=== PATIENT | male | born 1995 | race Caucasian/White ===

== ENCOUNTER 2018-01-07 17:37 | Emergency (ER) | payer OTHER, MEDICAID, SELFPAY ==
[2018-01-07 17:53] VITALS: BP 151/78; PULSE 74; RESP 18; TEMP 37.3; O2SAT 99
--- NOTE | 2018-01-07 18:03 | ED.SOB ---
HPI - SOB/Dyspnea <EDWINA Marquis - Last Filed: 01/07/18 20:35> General Chief Complaint: Shortness of Breath/Dyspnea Stated Complaint: SOB, states cant move/ feel left hand Time Seen by Provider: 01/07/18 18:03 Source: patient Mode of arrival: ambulatory Limitations: no limitations History of Present Illness MD Complaint: shortness of breath and anxiety Onset (ago): day(s) (1) Context: recent illness (nasal congestion and snotty nose) and anxiety (but says he doesn't think this anxiety this time) Severity: mild Consistency/Duration: constant Relieving factors: nothing Exacerbating factors: nothing Associated symptoms: paresthesias (hands feel numb) Treatment prior to arrival: none Related Data Previous Rx's Medication Instructions Recorded albuterol sulfate 1 puff INHALATION Q6H PRN #1 gram 01/07/18 Allergies Allergy/AdvReac Type Severity Reaction Status Date / Time No Known Allergies Allergy Uncoded 01/07/18 17:56 Review of Systems <EDWINA Marquis - Last Filed: 01/07/18 20:35> Review of Systems All systems reviewed & are unremarkable except as noted in HPI and below Constitutional Reports as per HPI, Reports system reviewed and no additional complaints, except as docu, Denies headache(s) and Denies weakness ENT Ears, Nose, Mouth, and Throat: Denies vertigo, Denies dizziness, Denies ear discharge, Denies otalgia, Denies facial pain, Denies headache(s), Reports nasal congestion, Denies nasal discharge, Denies post nasal drip, Denies sinus pain, Denies sinus pressure and Denies sore throat Cardiovascular Denies chest pain, Denies syncope, Reports dyspnea (feels like he can not take a deep breath) and Denies dyspnea on exertion Respiratory Denies chest congestion, Denies cough, Denies excessive phlegm production, Denies pain on inspiration, Denies pain with cough, Reports dyspnea (feels like he can not take a deep breath), Denies dyspnea on exertion and Denies wheezing Gastrointestinal Gastrointestinal: Denies abdominal pain Musculoskeletal Reports system reviewed and no additional complaints, except as docu and Denies back pain Neurologic Denies vertigo, Denies dizziness, Denies syncope, Denies headache(s), Denies sensory deficit, Reports paresthesias (hands feel numb) and Denies weakness Allergic/Immunologic Denies wheezing Exam <Meenakshi Bartlett [facility] - Last Filed: 01/07/18 20:35> Initial Vital Signs Initial Vital Signs: Vital Signs Temperature 99.1 F 01/07/18 17:53 Pulse Rate 74 01/07/18 17:53 Respiratory Rate 18 01/07/18 17:53 Blood Pressure 151/78 H 01/07/18 17:53 Pulse Oximetry 99 01/07/18 17:53 Const General: cooperative, healthy appearing, comfortable, well developed and well groomed Nutritional Appearance: average body habitus Orientation: alert, awake and oriented x3 HENMT Head: normal to inspection and normocephalic Ears: hearing grossly normal bilaterally, external ears normal, TM's normal bilaterally and mastoids normal Nose: external nose normal and nares normal Face and sinus: normal facial exam, sinuses nontender and face symmetric Mouth: oral mucosae normal, lip normal, tongue normal, oropharynx normal and moist mucous membranes Teeth and gingiva: dentition normal and gingiva normal Throat: posterior oropharynx normal, tonsils normal and uvula midline Eyes General: appearance normal, both eyes and all related structures Visual Pride: normal visual pride by confrontation Eyelids: eyelids normal Conjunctivae: conjunctivae normal Sclera: sclerae normal Pupils: PERRL EOM: EOM intact bilaterally Neck Neck: normal visual inspection, full ROM, no meningeal signs, trachea midline, supple and No lymphadenopathy Chest Chest: normal inspection of the chest Resp Effort & Inspection: normal respiratory effort and able to speak in complete sentences Auscultation: clear to auscultation bilaterally Cardio Rate: regular rate Rhythm: regular rhythm Heart Sounds: S1 normal and S2 normal Back/Spine/Pelvis Cervical Spine: cervical ROM normal Thoracic/Lumbar Spine: thoraco-lumbar ROM normal Skin General: no rashes or lesions noted, elasticity normal, turgor normal and dry skin Neuro General: alert, awake, oriented x3 and meningeal signs present Cognition: normal cognition Speech: speech normal Gait: normal gait Motor: muscle tone normal throughout Sensory Exam: no sensory deficits noted Extrem General: normal to inspection and full ROM Psych Appearance: grossly normal and well kempt Mental Status: mental status grossly normal Speech and Movement: speech and movement normal Mood: congruent mood Affect: normal affect Attitude: cooperative Thought Process: normal Thought Content: normal Judgment: judgment good <Tiffany C Mank, DO - Last Filed: 01/07/18 21:27> Initial Vital Signs Initial Vital Signs: Vital Signs Temperature 99.1 F 01/07/18 17:53 Pulse Rate 74 01/07/18 17:53 Respiratory Rate 18 01/07/18 17:53 Blood Pressure 151/78 H 01/07/18 17:53 Pulse Oximetry 99 01/07/18 17:53 Course <EDWINA Marquis - Last Filed: 01/07/18 20:35> Orders Ordered: ED Orders 01/07/18 17:49 EKG-12 Lead Stat 01/07/18 18:06 XR chest 2V Stat Vital Signs - 8 hr 01/07/18 17:53 01/07/18 18:15 01/07/18 19:30 Temperature 99.1 F Pulse Rate 74 77 74 Respiratory Rate 18 15 13 Blood Pressure 151/78 H Blood Pressure [Left Arm] 136/96 H 104/73 Pulse Oximetry 99 100 97 <Tiffany Gale DO - Last Filed: 01/07/18 21:27> Orders Ordered: ED Orders 01/07/18 17:49 EKG-12 Lead Stat 01/07/18 18:06 XR chest 2V Stat Vital Signs - 8 hr 01/07/18 17:53 01/07/18 18:15 01/07/18 19:30 Temperature 99.1 F Pulse Rate 74 77 74 Respiratory Rate 18 15 13 Blood Pressure 151/78 H Blood Pressure [Left Arm] 136/96 H 104/73 Pulse Oximetry 99 100 97 MDM - SOB/Dyspnea <EDWINA Marquis - Last Filed: 01/07/18 20:35> Differential Diagnosis Likely community acquired pneumonia, asthma with exacerbation and other (anxiety, allergies, bronchitis, flu, uri) Imaging Data Chest x-ray: Radiologist's impression: [address] [address] XRay Report Signed Patient: Brandno Jones WMR#: [id number] : 1995Acct:[id number] Age/Sex: 22 / MDate of Service: 01/07/18 Loc: ED Accession Number: [id number] Procedure: XR chest 2V Ordering Provider: Dhruv,Meenakshi [employer] PROCEDURE: XR CHEST 2V INDICATIONS: cough TECHNIQUE: 2 views of the chest were acquired. COMPARISON: None. FINDINGS: Surgical changes and devices: None. Lungs and pleura: No pleural effusions or pneumothorax. Lungs are clear. Mediastinum: Mediastinal contours are normal. Heart size is normal. Bones and chest wall: No suspicious bony abnormalities. Soft tissues appear unremarkable. IMPRESSION: No acute pulmonary process. Dictated by: Sherrie Campbell M.D. on 01/07/2018 at 18:23 Approved by: Sherrie Campbell M.D. on 01/07/2018 at 18:23 Discharge Plan Departure Patient Disposition: Home Clinical Impression: Dyspnea, Normal exam Discharge Date/Time: 01/07/18 19:45 Interventions: ED Discharge Assessment Last Done: 01/07/18 19:41 Instructions: DI for Shortness of Breath Prescriptions: New albuterol sulfate 90 mcg/actuation HFA aerosol inhaler 1 puff INHALATION Q6H PRN (Reason: shortness of breath or wheezing) Qty: 1 RF: 0 Referrals: Мария Carey DO [Primary Care Provider] - (follow up in approx 3-5 days) <Tiffany Gale DO - Last Filed: 01/07/18 21:27> Cosign ED Attending Cosignature Attestation: I was immediately available in the department for consultation. This documentation has been reviewed and I agree with assessment and plan. Supervised by Tiffany Gale DO
--- NOTE | 2018-01-07 18:06 | DI.RAD.S_ITS ---
PROCEDURE: XR CHEST 2V INDICATIONS: cough TECHNIQUE: 2 views of the chest were acquired. COMPARISON: None. FINDINGS: Surgical changes and devices: None. Lungs and pleura: No pleural effusions or pneumothorax. Lungs are clear. Mediastinum: Mediastinal contours are normal. Heart size is normal. Bones and chest wall: No suspicious bony abnormalities. Soft tissues appear unremarkable. IMPRESSION: No acute pulmonary process. Dictated by: Sherrie Campbell M.D. on 01/07/2018 at 18:23 Approved by: Sherrie Campbell M.D. on 01/07/2018 at 18:23
[2018-01-07 18:15] VITALS: BP 136/96; PULSE 77; RESP 15; O2SAT 100
--- NOTE | 2018-01-07 19:14 | ED_ITS ---
HPI - SOB/Dyspnea <EDWINA Marquis - Last Filed: 01/07/18 20:35> General Chief Complaint: Shortness of Breath/Dyspnea Stated Complaint: SOB, states cant move/ feel left hand Time Seen by Provider: 01/07/18 18:03 Source: patient Mode of arrival: ambulatory Limitations: no limitations History of Present Illness MD Complaint: shortness of breath and anxiety Onset (ago): day(s) (1) Context: recent illness (nasal congestion and snotty nose) and anxiety (but says he doesn't think this anxiety this time) Severity: mild Consistency/Duration: constant Relieving factors: nothing Exacerbating factors: nothing Associated symptoms: paresthesias (hands feel numb) Treatment prior to arrival: none Related Data Previous Rx's Medication Instructions Recorded albuterol sulfate 1 puff INHALATION Q6H PRN #1 gram 01/07/18 Allergies Allergy/AdvReac Type Severity Reaction Status Date / Time No Known Allergies Allergy Uncoded 01/07/18 17:56 Review of Systems <EDWINA Marquis - Last Filed: 01/07/18 20:35> Review of Systems All systems reviewed & are unremarkable except as noted in HPI and below Constitutional Reports as per HPI, Reports system reviewed and no additional complaints, except as docu, Denies headache(s) and Denies weakness ENT Ears, Nose, Mouth, and Throat: Denies vertigo, Denies dizziness, Denies ear discharge, Denies otalgia, Denies facial pain, Denies headache(s), Reports nasal congestion, Denies nasal discharge, Denies post nasal drip, Denies sinus pain, Denies sinus pressure and Denies sore throat Cardiovascular Denies chest pain, Denies syncope, Reports dyspnea (feels like he can not take a deep breath) and Denies dyspnea on exertion Respiratory Denies chest congestion, Denies cough, Denies excessive phlegm production, Denies pain on inspiration, Denies pain with cough, Reports dyspnea (feels like he can not take a deep breath), Denies dyspnea on exertion and Denies wheezing Gastrointestinal Gastrointestinal: Denies abdominal pain Musculoskeletal Reports system reviewed and no additional complaints, except as docu and Denies back pain Neurologic Denies vertigo, Denies dizziness, Denies syncope, Denies headache(s), Denies sensory deficit, Reports paresthesias (hands feel numb) and Denies weakness Allergic/Immunologic Denies wheezing Exam <Meenakshi Bartlett [facility] - Last Filed: 01/07/18 20:35> Initial Vital Signs Initial Vital Signs: Vital Signs Temperature 99.1 F 01/07/18 17:53 Pulse Rate 74 01/07/18 17:53 Respiratory Rate 18 01/07/18 17:53 Blood Pressure 151/78 H 01/07/18 17:53 Pulse Oximetry 99 01/07/18 17:53 Const General: cooperative, healthy appearing, comfortable, well developed and well groomed Nutritional Appearance: average body habitus Orientation: alert, awake and oriented x3 HENMT Head: normal to inspection and normocephalic Ears: hearing grossly normal bilaterally, external ears normal, TM's normal bilaterally and mastoids normal Nose: external nose normal and nares normal Face and sinus: normal facial exam, sinuses nontender and face symmetric Mouth: oral mucosae normal, lip normal, tongue normal, oropharynx normal and moist mucous membranes Teeth and gingiva: dentition normal and gingiva normal Throat: posterior oropharynx normal, tonsils normal and uvula midline Eyes General: appearance normal, both eyes and all related structures Visual Pride: normal visual pride by confrontation Eyelids: eyelids normal Conjunctivae: conjunctivae normal Sclera: sclerae normal Pupils: PERRL EOM: EOM intact bilaterally Neck Neck: normal visual inspection, full ROM, no meningeal signs, trachea midline, supple and No lymphadenopathy Chest Chest: normal inspection of the chest Resp Effort & Inspection: normal respiratory effort and able to speak in complete sentences Auscultation: clear to auscultation bilaterally Cardio Rate: regular rate Rhythm: regular rhythm Heart Sounds: S1 normal and S2 normal Back/Spine/Pelvis Cervical Spine: cervical ROM normal Thoracic/Lumbar Spine: thoraco-lumbar ROM normal Skin General: no rashes or lesions noted, elasticity normal, turgor normal and dry skin Neuro General: alert, awake, oriented x3 and meningeal signs present Cognition: normal cognition Speech: speech normal Gait: normal gait Motor: muscle tone normal throughout Sensory Exam: no sensory deficits noted Extrem General: normal to inspection and full ROM Psych Appearance: grossly normal and well kempt Mental Status: mental status grossly normal Speech and Movement: speech and movement normal Mood: congruent mood Affect: normal affect Attitude: cooperative Thought Process: normal Thought Content: normal Judgment: judgment good <Tiffany C Mank, DO - Last Filed: 01/07/18 21:27> Initial Vital Signs Initial Vital Signs: Vital Signs Temperature 99.1 F 01/07/18 17:53 Pulse Rate 74 01/07/18 17:53 Respiratory Rate 18 01/07/18 17:53 Blood Pressure 151/78 H 01/07/18 17:53 Pulse Oximetry 99 01/07/18 17:53 Course <EDWINA Marquis - Last Filed: 01/07/18 20:35> Orders Ordered: ED Orders 01/07/18 17:49 EKG-12 Lead Stat 01/07/18 18:06 XR chest 2V Stat Vital Signs - 8 hr 01/07/18 17:53 01/07/18 18:15 01/07/18 19:30 Temperature 99.1 F Pulse Rate 74 77 74 Respiratory Rate 18 15 13 Blood Pressure 151/78 H Blood Pressure [Left Arm] 136/96 H 104/73 Pulse Oximetry 99 100 97 <Tiffany Gale DO - Last Filed: 01/07/18 21:27> Orders Ordered: ED Orders 01/07/18 17:49 EKG-12 Lead Stat 01/07/18 18:06 XR chest 2V Stat Vital Signs - 8 hr 01/07/18 17:53 01/07/18 18:15 01/07/18 19:30 Temperature 99.1 F Pulse Rate 74 77 74 Respiratory Rate 18 15 13 Blood Pressure 151/78 H Blood Pressure [Left Arm] 136/96 H 104/73 Pulse Oximetry 99 100 97 MDM - SOB/Dyspnea <EDWINA Marquis - Last Filed: 01/07/18 20:35> Differential Diagnosis Likely community acquired pneumonia, asthma with exacerbation and other (anxiety , allergies, bronchitis, flu, uri) Imaging Data Chest x-ray: Radiologist's impression: [address] [address] XRay Report Signed Patient: Brandon Jones WMR#: [id number] : 1995Acct:[id number] Age/Sex: 22 / MDate of Service: 01/07/18 Loc: ED Accession Number: [id number] Procedure: XR chest 2V Ordering Provider: Dhruv,Meenakshi [employer] PROCEDURE: XR CHEST 2V INDICATIONS: cough TECHNIQUE: 2 views of the chest were acquired. COMPARISON: None. FINDINGS: Surgical changes and devices: None. Lungs and pleura: No pleural effusions or pneumothorax. Lungs are clear. Mediastinum: Mediastinal contours are normal. Heart size is normal. Bones and chest wall: No suspicious bony abnormalities. Soft tissues appear unremarkable. IMPRESSION: No acute pulmonary process. Dictated by: Sherrie Campbell M.D. on 01/07/2018 at 18:23 Approved by: Sherrie Campbell M.D. on 01/07/2018 at 18:23 Discharge Plan Departure Patient Disposition: Home Clinical Impression: Dyspnea, Normal exam Discharge Date/Time: 01/07/18 19:45 Interventions: ED Discharge Assessment Last Done: 01/07/18 19:41 Instructions: DI for Shortness of Breath Prescriptions: New albuterol sulfate 90 mcg/actuation HFA aerosol inhaler 1 puff INHALATION Q6H PRN (Reason: shortness of breath or wheezing) Qty: 1 RF : 0 Referrals: Мария Carey DO [Primary Care Provider] - (follow up in approx 3-5 days) <Tiffany Gale DO - Last Filed: 01/07/18 21:27> Cosign ED Attending Cosignature Attestation: I was immediately available in the department for consultation. This documentation has been reviewed and I agree with assessment and plan. Supervised by Tiffany Gale DO
[2018-01-07 19:30] VITALS: BP 104/73; PULSE 74; RESP 13; O2SAT 97
== END 2018-01-07 19:45 | disposition home or self-care (01) ==
PROVIDERS: Emergency Provider Nurse Practitioner; Family Provider Family Medicine; PCP Family Medicine
DX: R06.00 Dyspnea, unspecified (principal)
CPT/HCPCS: 71046; 93005; 99282; 99284

== ENCOUNTER → 2018-06-18 14:57 | Outpatient (CLI) | payer OTHER, MEDICAID, SELFPAY ==
[2018-06-18 16:36] LABS: Add Manual Diff / Slide Review NO; Basophils Absolute Auto 100 /uL (0-100); Basophils Percent Auto 0.6 % (0-2); Eosinophils Absolute Auto 100 /uL (0-450); Hemoglobin 15.1 g/dL (13.5-17.5); Lymphocytes Absolute Auto 2700 /uL (1100-4500); Lymphocytes Percent Auto 28.6 % (25-40); Mean Corpuscular HGB Conc 34.4 % (30-36); Mean Corpuscular Hemoglobin 30.3 PG (26-34); Mean Corpuscular Volume 88.2 fL (80-100); Monocytes Absolute Auto 600 /uL (0-900); Monocytes Percent Auto 6.1 % (3-14); Neutrophils Absolute Auto 5900 /uL (1500-7000); Neutrophils Percent Auto 63.7 % (50-75); Platelet Count 218 X10^3/uL (150-400); Red Blood Cell Count 4.99 X10^6/uL (4.5-5.9); Red Cell Distribution Width 13.3 % (11.6-14.8); White Blood Cell Count 9.3 X10^3/uL (4.5-11.0)
[2018-06-18 16:43] LABS: Alanine Aminotransferase 65 IU/L (21-72); Albumin 4.8 g/dL (3.5-5.0); Albumin Globulin Ratio 1.5 (1.0-2.8); Alkaline Phosphatase 62 U/L (38-126); Aspartate Aminotransferase 33 IU/L (17-59); Blood Urea Nitrogen 12 mg/dL (9-20); Calcium 9.9 mg/dL (8.4-10.2); Carbon Dioxide 27 mmol/L (22-32); Chloride 101 mmol/L (98-107); Estimated Glomerular Filt Rate > 60.0 mL/min (>60); Globulin 3.1 g/dL (1.7-4.1); Glucose 97 mg/dL (70-100); HEMOLYSIS 16 (0-50); Potassium 4.7 mmol/L (3.4-5.1); Sodium 140 mmol/L (137-145); Total Protein 7.9 g/dL (6.3-8.2)
[2018-06-18 16:59] LABS: Vitamin D 25 Hydroxy (D3) 20.5 ng/mL (30.0-100.0)
[2018-06-18 17:15] LABS: TSH w/ Reflex to FT4 2.72 uIU/mL (0.47-4.68)
[2018-06-18 17:31] LABS: Vitamin B12 436 pg/mL (239-931)
== END ==
PROVIDERS: Family Provider Family Medicine; PCP Family Medicine; Visit Provider Family Medicine
DX: R53.82 Chronic fatigue, unspecified (principal)
CPT/HCPCS: 36415; 80053; 82306; 82607; 84443; 85025

== ENCOUNTER 2018-08-28 21:40 | Emergency (ER) | payer OTHER, MEDICAID, SELFPAY ==
[2018-08-28 21:46] VITALS: BP 139/84; PULSE 79; RESP 17; TEMP 37.3; O2SAT 99; BMI 34.7
--- NOTE | 2018-08-28 23:18 | ED.BACK ---
HPI - Back Pain/Injury General Chief Complaint: Back Pain/Injury Stated Complaint: LOW BACK PAIN, RT LEG PAIN Time Seen by Provider: 08/28/18 23:13 Source: patient Mode of arrival: ambulatory Limitations: no limitations History of Present Illness HPI Narrative: Patient is a 22-year-old male here for evaluation of back pain. He states that is radiating down to his right leg. He also complains of having pressure in his bladder although he is not having any urinary symptoms. No urinary incontinence. States he feels like he empties his bladder when goes the bathroom. No bowel changes. No saddle anesthesia. No specific trauma. Has not tried anything for symptoms prior to arrival. Related Data Home Medications Medication Instructions Recorded Confirmed Respironics DreamStation Auto CPAP #1 ea 04/30/18 05/24/18 Previous Rx's Medication Instructions Recorded albuterol sulfate 1 puff INHALATION Q6H PRN #1 gram 01/07/18 citalopram 40 mg tablet 40 mg PO DAILY #90 tab 06/18/18 Allergies Allergy/AdvReac Type Severity Reaction Status Date / Time No Known Drug Allergies Allergy Verified 08/28/18 21:46 Review of Systems Constitutional Denies fever(s), Denies headache(s) and Denies weakness ENT Ears, Nose, Mouth, and Throat: Denies headache(s) and Denies disequilibrium Cardiovascular Denies chest pain, Denies syncope and Denies dyspnea Respiratory Denies dyspnea Gastrointestinal Gastrointestinal: Reports abdominal pain (Bilateral lower abdominal pain), Denies nausea and Denies vomiting Genitourinary Denies genital pain, Denies dysuria, Denies testicular pain, Denies urinary hesitancy and Denies urinary incontinence Comments: Bladder pressure Musculoskeletal Reports back pain and Reports radiating pain into limb Integumentary/Breasts Denies rash Neurologic Denies syncope, Denies headache(s), Denies paresthesias, Denies disequilibrium and Denies weakness Hematologic/Lymphatic Denies easy bleeding and Denies easy bruising [facility] Medical History Hypersomnia (Chronic) Insomnia (Chronic) Obstructive sleep apnea syndrome (Chronic 05/09/17) Anxiety (Chronic ~2014) Depression (Chronic ~2002) Foot pain (Chronic ~2007) Post traumatic stress disorder (PTSD) (Chronic ~2015) Social History marital status: unmarried,single occupational status: employed Smoking Status: Never smoker alcohol intake: current substance use type: does not use Social History marital status: unmarried,single occupational status: employed Smoking Status: Never smoker alcohol intake: current substance use type: does not use Exam Initial Vital Signs Initial Vital Signs: Vital Signs Temperature 99.1 F 08/28/18 21:46 Pulse Rate 79 08/28/18 21:46 Respiratory Rate 17 08/28/18 21:46 Blood Pressure 139/84 08/28/18 21:46 Pulse Oximetry 99 08/28/18 21:46 Const General: cooperative, healthy appearing, comfortable, well developed, well groomed and No acute distress Orientation: alert, awake and oriented x3 HENMT Head: normal to inspection and normocephalic Resp Effort & Inspection: normal respiratory effort Cardio Rate: regular rate GI Inspection: non-distended Palpation: soft, No firm and tender (Bilateral lower abdominal tenderness without rebound or guarding) Back/Spine/Pelvis Back: No CVA tenderness Thoracic/Lumbar Spine: No thoraco-lumbar spasm, No thoracic spinal tenderness and No lumbar spinal tenderness Skin Lesions: no lesions Rashes: no rashes Neuro General: alert and awake Cognition: normal cognition Speech: speech normal Gait: normal gait Extrem General: normal to inspection and capillary refill normal Course Vital Signs - 8 hr 08/28/18 21:46 08/29/18 00:35 Temperature 99.1 F Pulse Rate 79 73 Respiratory Rate 17 18 Blood Pressure 139/84 134/81 Pulse Oximetry 99 99 MDM - Back Pain/Injury Lab Data Attestation: I reviewed the patient's lab results. Urine Dip Bedside Urine Glucose Negative Bedside Urine Bilirubin - Negative Bedside Urine Ketone - Negative Urine Specific [place] 1.020 Bedside Urine Occult Blood - Negative Bedside Urine pH 6 Bedside Urine Protein - Negative Bedside Urine Urobilinogen - Negative Bedside Urine Nitrite - Negative Bedside Urine Leukocytes - Negative Esterase [facility] Narrative Medical decision making narrative: Patient's urine is negative. Patient does not have any red flag symptoms concerning for cauda equina or fracture or metastasis or abscess or hematoma. Suspect musculoskeletal. Patient was instructed on the use of anti-inflammatories. He was given strict return precautions. He expressed understanding and agreement with plan. Discharge Plan Departure Patient Disposition: Home Clinical Impression: Strain of lumbar region Qualifiers: Encounter type: initial encounter Qualified Code(s): S39.012A - Strain of muscle, fascia and tendon of lower back, initial encounter Discharge Date/Time: 08/29/18 00:35 Interventions: ED Discharge Assessment Last Done: 08/29/18 00:35 Instructions: Activity May Be Better then Rest for Low Back Pain Recovery, DI for Back Strain or Sprain Activity Restrictions/Additional Instructions: Recommend that he take 600 mg of either Motrin or ibuprofen or Aleve every 8 hours as needed for discomfort. Contact your primary doctor for a follow-up. Return to the emergency department for any new or worsening symptoms Prescriptions: No Action citalopram 40 mg tablet 40 mg PO DAILY Qty: 90 RF: 1 albuterol sulfate 90 mcg/actuation HFA aerosol inhaler 1 puff INHALATION Q6H PRN (Reason: shortness of breath or wheezing) Qty: 1 RF: 0 Respironics DreamStation Auto CPAP Qty: 1 RF: 0 Referrals: Мария Carey DO [Primary Care Provider] -
[2018-08-29 00:35] VITALS: BP 134/81; PULSE 73; RESP 18; O2SAT 99
== END 2018-08-29 00:35 | disposition home or self-care (01) ==
PROVIDERS: Emergency Provider Emergency Medicine; Family Provider Family Medicine; PCP Family Medicine
DX: S39.012A Strain of muscle, fascia and tendon of lower back, initial encounter (principal); M79.604 Pain in right leg
CPT/HCPCS: 81003; 99282

== ENCOUNTER 2019-01-29 13:04 | Emergency (ER) | payer OTHER, MEDICAID, SELFPAY ==
[2019-01-29 13:14] VITALS: BP 133/89; PULSE 84; RESP 18; TEMP 36.7; O2SAT 98
[2019-01-29 15:06] VITALS: BP 93/57; PULSE 74; RESP 16; TEMP 36.5; O2SAT 94
--- NOTE | 2019-01-29 15:07 | PC.NURSE ---
reports abdominal pain onset 2 days ago, pt developed sharp gastric pain, with nausea, denies vomiting. denies fever. last solid meal at 730 last night.
[2019-01-29] MEDS: LORazepam 0.5 MG TABLET PO (16:05)
[2019-01-29 16:55] VITALS: BP 121/79; PULSE 75; RESP 14; O2SAT 99
--- NOTE | 2019-01-29 16:59 | ED_ITS ---
HPI - Anxiety <EDWINA Kraus - Last Filed: 01/30/19 00:41> General Chief Complaint: Anxiety Stated Complaint: Quitapine causing anxiety/confused constant yest. Time Seen by Provider: 01/29/19 15:21 Source: patient Mode of arrival: Ambulatory Limitations: no limitations History of Present Illness HPI narrative: This is 23 year old male, nonsmoker, who presents to ED with feeling anxious for last 2 days. Patient describes it as a ball of nerves. Patient has history of depression and has been taking Questipine last 2 months or so and had a taper up the dose to 200 mg from 150 mg a couple of days ago. Patient states he felt like loss tracking up time, fogginess in had, trouble with focusing and felt confused which lasted about 1-2 hours. Again, he felt anxiety today. Patient denies chest pain, breathing difficulty, feeling dizzy, hyperventilation, or palpitation in his chest. Related Data Home Medications Medication Instructions Recorded Confirmed Respironics DreamStation Auto CPAP #1 ea 04/30/18 01/29/19 quetiapine 200 mg PO BEDTIME 01/29/19 01/29/19 Previous Rx's Medication Instructions Recorded albuterol sulfate 1 puff INHALATION Q6H PRN #1 gram 01/07/18 lorazepam [Ativan] 0.5 mg PO BID PRN #7 tab 01/29/19 Allergies Allergy/AdvReac Type Severity Reaction Status Date / Time No Known Drug Allergies Allergy Verified 11/18/18 14:20 Review of Systems <Jeronimo Thorpe WORM SORTER - Last Filed: 01/30/19 00:41> Review of Systems Narrative: General: Denies fever, chills, fatigue, malaise, sweats. HEENT: Denies sinus pain, ear pain, sore throat, difficulty swallowing, dizziness. Respiratory: Denies dyspnea, cough, wheezing, hemoptysis, sputum. Cardiovascular: Denies chest pain, palpitations, orthopnea, edema. Gastrointestinal: Denies nausea, vomiting, abdominal pain, diarrhea, constipation, melena. : Denies dysuria, frequency, incontinence, hematuria, urinary retention. Musculoskeletal: Denies weakness, joint pain or bony pain. Skin: Denies rash, skin lesions, or other. Neurologic: See HPI Psychiatric: No concerning psychosocial issues. 12-point review of systems is negative except for those stated above. Patient History <EDWINA Kraus - Last Filed: 01/30/19 00:41> Medical History Anxiety (Chronic ~2014) Depression (Chronic ~2002) Foot pain (Chronic ~2007) Hypersomnia (Chronic) Insomnia (Chronic) Obstructive sleep apnea syndrome (Chronic 05/09/17) Post traumatic stress disorder (PTSD) (Chronic ~2015) Social History marital status: unmarried,single occupational status: employed Smoking Status: Never smoker alcohol intake: current substance use type: does not use alcohol intake frequency: holidays/special occasions only Substance Use Type: does not use Exam <EDWINA Kraus - Last Filed: 01/30/19 00:41> Narrative Exam Narrative: GEN: Alert, oriented x 3, well appearing and nourished, and in no acute distress. Head: Normal cephalic, atraumatic. No scalp or temporal tenderness, palpable mass or rash. EYES: Pupils are equal, round, and reactive to light and accommodation. Extraocular muscles are intact bilaterally. There is no subconjunctival hemor rhage, exudate and sclera non-icteric. ENT: Bilateral auditory canals and tympanic membranes clear. Hearing grossly intact. Nose without bleeding, purulent discharge or deviation. Facial sinuses nontender to palpate. Mucous membrane moist, no mucosal lesion. Throat without erythema, tonsillar hypertrophy or exudate. Uvula in midline, airway patent. Neck: Trachea in midline. No JVD, non-tender without lymphadenopathy. No masses or thyroid megaly. Supple, non-tender and no meningeal signs. CARDIAC: Normal regular rate and rhythm without murmurs, gallops, or rubs. No chest wall tenderness. No peripheral edema, cyanosis or pallor. Capillary refill is less than 2 seconds. RESPIRATORY: Lungs are clear to auscultate bilaterally. No cough, wheezes, rales, or rhonchi. No stridor, respiratory distress, increase work of breathing, or accessary muscle used. ABD: Abdomen soft, nontender and non-distended. No guarding or rebound tenderness to palpate. Bowel sounds are normal in all 4 quadrants. There is no palpable masses or organomegaly. EXT: Full painless ROM of all extremities with no loss of sensation, strength, effusion or edema. SKIN: Warm, dry, normal color for patient. No erythema, lesions or rash over visible areas. BACK: Nontender without deformity or crepitance. No flank tenderness. NEUROLOGICAL: Alert and oriented to place, time and person. Sensation and motor function intact bilaterally. No facial droops, dysphasia. PSYCHIATRIC: Good judgement and reason, without hallucinations, abnormal affect or abnormal behaviors during the examination. Patient is not suicidal or homicidal. Initial Vital Signs Initial Vital Signs: Vital Signs Temperature 98.1 F 01/29/19 13:14 Pulse Rate 84 01/29/19 13:14 Respiratory Rate 18 01/29/19 13:14 Blood Pressure 133/89 01/29/19 13:14 Pulse Oximetry 98 01/29/19 13:14 <Binh Noonan DO - Last Filed: 02/01/19 18:21> Initial Vital Signs Initial Vital Signs: Vital Signs Temperature 98.1 F 01/29/19 13:14 Pulse Rate 84 01/29/19 13:14 Respiratory Rate 18 01/29/19 13:14 Blood Pressure 133/89 01/29/19 13:14 Pulse Oximetry 98 01/29/19 13:14 Scores <EDWINA Kraus - Last Filed: 01/30/19 00:41> GCS Batool coma scale eye opening: Spontaneous Mcpherson coma scale verbal response: Orientated Mcpherson coma scale motor response: Obey commands Batool coma scale total score: 15 Course <EDWINA Kraus - Last Filed: 01/30/19 00:41> Orders Ordered: Discontinued Medications Lorazepam (Ativan) 0.5 mg PO NOW ONE Stop: 01/29/19 16:00 Last Admin: 01/29/19 16:05 Dose: 0.5 mg Documented by: DOREEN Vital Signs Vital signs: Vital Signs - 8 hr 01/29/19 16:55 Pulse Rate 75 Respiratory Rate 14 Blood Pressure 121/79 Pulse Oximetry 99 <Binh Noonan DO - Last Filed: 02/01/19 18:21> Orders Ordered: Discontinued Medications Lorazepam (Ativan) 0.5 mg PO NOW ONE Stop: 01/29/19 16:00 Last Admin: 01/29/19 16:05 Dose: 0.5 mg Documented by: DOREEN Vital Signs Vital signs: Vital Signs - 8 hr 01/29/19 16:55 Pulse Rate 75 Respiratory Rate 14 Blood Pressure 121/79 Pulse Oximetry 99 [facility] - Anxiety <Jeronimo EDWINA Thorpe - Last Filed: 01/30/19 00:41> Differential Diagnosis Differential diagnosis: Likely acute anxiety and other (Medication reaction) Medical Records Attestation: I reviewed the patient's medical records. [facility] Narrative Medical decision making narrative: This is a pleasant 23-year-old male who presents to ED with feeling of anxiety and states possible medication reaction after he titrated up the dose of Quetiapine from 150 mg to 200 mg 2 days ago. Patient is seeing Dr. River and ANTONIO Vitale for history of depression and anxiety and he was told okay to titrate up the dose. Patient denies chest pain, palpitation, breathing difficulty, or dizziness. Patient denies recreational drug use. Patient denies homicidal or suicidal ideations. Patient was medicated with low dose of Ativan 0.5 mg p.o. while in ED and patient reports his symptoms improved. Patient advised to decrease quetiapine to his previous dose as 150 mg and advised to follow up with his primary care physician/psychiatrist/[employer]PER[employer] to discussed his symptoms. A few dose of Ativan for home use was provided for recurring symptoms. Return precautions were discussed with the patient and patient agrees with the treatment plan and no further questions were expressed at this time. Discharge Plan Departure Patient Disposition: Home Clinical Impression: Anxiety Medication reaction Qualifiers: Encounter type: initial encounter Qualified Code(s): T50.905A - Adverse effect of unspecified drugs, medicaments and biological substances, initial encounter Discharge Date/Time: 01/29/19 16:56 Activity Restrictions/Additional Instructions: You have been diagnosed with [anxiety, possible medication reaction to increased quetiapine dose from 150 to 200 mg]. What to do: *Take your medications as directed. Please decreased the Quetiapine medication dose to 150 mg at this time. Ativan may cause drowsiness so please do not drive, drink alcohol, or operate heavy equipments. *Follow up with your primary care provider and counselor in 2-3 days, call for an appointment. Let them know you were seen in the ED and that we asked you to be seen in follow up. *Return to ED if you have any new, worsening, or concerning symptoms, such as [worsening symptoms, breathing difficulty, chest pain, unable to tolerate fluids, increasing anxiety with the medication, suicidal or homicidal ideation or any acute concerns]. Prescriptions: New lorazepam [Ativan] 0.5 mg tablet 0.5 mg PO BID PRN (Reason: anxiety) Qty: 7 RF: 0 No Action quetiapine 100 mg tablet 200 mg PO BEDTIME RF: 0 albuterol sulfate 90 mcg/actuation HFA aerosol inhaler 1 puff INHALATION Q6H PRN (Reason: shortness of breath or wheezing) Qty: 1 RF: 0 (DME) Respironics DreamStation Auto CPAP Qty: 1 RF: 0 Referrals: Мария Carey DO [Primary Care Provider] -
== END 2019-01-29 16:56 | disposition home or self-care (01) ==
PROVIDERS: Emergency Provider Nurse Practitioner Family; Family Provider Family Medicine; PCP Family Medicine
DX: F41.9 Anxiety disorder, unspecified (principal); T50.905A Adverse effect of unspecified drugs, medicaments and biological substances, initial encounter
CPT/HCPCS: 99282; 99283

== ENCOUNTER 2019-02-24 03:18 | Emergency (ER) | payer OTHER, MEDICAID, SELFPAY ==
[2019-02-24 03:24] VITALS: BP 142/83; PULSE 80; RESP 19; TEMP 36.9; O2SAT 97; BMI 36.9
--- NOTE | 2019-02-24 03:27 | ED.ALLEREA ---
HPI - Allergic Reaction General Chief complaint: Allergic Reaction Stated complaint: took medication/throat tingly and tight Time Seen by Provider: 02/24/19 03:25 Source: patient Mode of arrival: Ambulatory Limitations: no limitations History of Present Illness HPI narrative: This is a 23-year-old male comes to the emergency department with complaint of throat irritation. Patient states he has been using Flonase twice a day for 2 weeks. He also took azithromycin for 5 days which he finished about 9 days ago. Patient states today around midnight used as Flonase. He states that it made his back of his throat feels irritated. When asked if he feels like his throat is tight or he states does not feel swollen. He denies any swelling of his lips or tongue. He states his nose has been really dry and back of his throat has been really dry. Denies fevers. Facial swelling. denies any changes in voice. No wheezing, chest pain, no nausea or vomiting. No other GI or urinary symptoms. he did have a cough which has since resolved. He states he continue to use the Flonase because it told him on the directions to use for 2 weeks. His symptoms have resolved. He does not appreciate any plaques skin changes. No redness. he states he does take quetiapine 4 anxiety/mood and he is waiting for refill but has not been successfully refill he thinks this is because of the weekend he is concerned he may missed several doses. He did have his regular dose yesterday. Related Data Home Medications Medication Instructions Recorded Confirmed Respironics DreamStation Auto CPAP #1 ea 04/30/18 02/10/19 quetiapine 200 mg PO BEDTIME 01/29/19 02/10/19 Previous Rx's Medication Instructions Recorded albuterol sulfate 1 puff INHALATION Q6H PRN #1 gram 01/07/18 lorazepam [Ativan] 0.5 mg PO BID PRN #7 tab 01/29/19 azithromycin 250 mg tablet See Rx Instructions PO .COMPLEX #6 02/10/19 tab quetiapine 200 mg PO BEDTIME #10 tab 02/24/19 Allergies Allergy/AdvReac Type Severity Reaction Status Date / Time No Known Drug Allergies Allergy Verified 02/10/19 15:45 Review of Systems Review of Systems ROS Unobtainable: All systems reviewed & are unremarkable except as noted in HPI and below Patient History Medical History Anxiety (Chronic ~2014) Depression (Chronic ~2002) Foot pain (Chronic ~2007) Hypersomnia (Chronic) Insomnia (Chronic) Obstructive sleep apnea syndrome (Chronic 05/09/17) Post traumatic stress disorder (PTSD) (Chronic ~2015) Social History marital status: unmarried,single occupational status: employed Smoking Status: Never smoker alcohol intake: current substance use type: does not use alcohol intake frequency: holidays/special occasions only Substance Use Type: does not use Exam Narrative Exam Narrative: GEN: Obese male, alert and oriented x 3, patient appears to be in no acute distress. HEENT: Atraumatic, pupils are equal round reactive to light, extraocular movements are intact, nares are clear, TMs are clear with no fluid, there is no conjunctival pallor. Throat is clear without any exudates, erythema, tonsillar enlargement or uvular deviation, patient has some mild yellowish discoloration to his tongue but no plaque, posterior through appears slightly erythematous. Nares appear dry. no stridor. Clear voice. HEART: Regular rate and rhythm without murmur, clicks, rubs. LUNGS:Lungs clear to auscultation, no wheezes, rales, crackles, chest moves symmetrically ABD:bowel sounds normal, soft, non-tender, no guarding, rebound, rigidity, no masses noted, no hepatosplenomegaly MSCL: Full range of motion, normal gait NEURO:CN 2-12 intact, sensation normal Initial Vital Signs Initial Vital Signs: Vital Signs Temperature 98.4 F 02/24/19 03:24 Pulse Rate 80 02/24/19 03:24 Respiratory Rate 19 02/24/19 03:24 Blood Pressure 142/83 H 02/24/19 03:24 Pulse Oximetry 97 02/24/19 03:24 Course Orders Ordered: Discontinued Medications Diphenhydramine HCl (Benadryl) 25 mg PO NOW ONE Stop: 02/24/19 03:38 Last Admin: 02/24/19 03:41 Dose: 25 mg Documented by: YISSEL Vital Signs Vital signs: Vital Signs - 8 hr 02/24/19 03:24 Temperature 98.4 F Pulse Rate 80 Respiratory Rate 19 Blood Pressure 142/83 H Pulse Oximetry 97 MDM - Allergic Reaction MDM Narrative Medical decision making narrative: Discussed with patient he is also complaining of some nasal irritation I suspect that he has increasingly dry mucous membranes from using the fluticasone. After long discussion sound like his throat is more irritated and not really swollen or tight and my suspicion for an allergic reaction is low. We also discussed possibility of thrush although no changes visualized that would be consistent and other potential causes. We did discuss trying 1 dose of Benadryl to see if it is helpful. Patient states that he is finish the medication and does not need it anymore. He denies any other symptoms. He states that he thinks that he may not have any quetiapine as he finished his last dose he called for refill on Sunday but states because of the weekend it might not be ready in the next day or 2. Plan for short course refill so the patient does not have to miss doses of his quetiapine. Discharge Plan Departure Patient Disposition: Home Clinical Impression: Throat discomfort Instructions: Sore Throat Activity Restrictions/Additional Instructions: Follow up with your physician in the next 2-3 days if no improvement. Call for an appointment. Make sure you are drinking plenty of fluids. Your prescription for quetiapine was sent to [facility] in [place]. Return to the emergency department for fevers greater than 100.4, swelling of your throat, tongue, mouth or face, if her having difficulty breathing, a white plaque on your posterior throat or tongue, wheezing or stridor lightheadedness or passing-out, new rashes or skin changes, persistent vomiting or other new or concerning symptoms Prescriptions: New quetiapine 100 mg tablet 200 mg PO BEDTIME Qty: 10 RF: 0 No Action azithromycin 250 mg tablet See Rx Instructions PO .COMPLEX Qty: 6 RF: 0 quetiapine 100 mg tablet 200 mg PO BEDTIME RF: 0 lorazepam [Ativan] 0.5 mg tablet 0.5 mg PO BID PRN (Reason: anxiety) Qty: 7 RF: 0 albuterol sulfate 90 mcg/actuation HFA aerosol inhaler 1 puff INHALATION Q6H PRN (Reason: shortness of breath or wheezing) Qty: 1 RF: 0 (DME) Respironics DreamStation Auto CPAP Qty: 1 RF: 0 Referrals: Мария Carey DO [Primary Care Provider] -
--- NOTE | 2019-02-24 03:35 | PC.NURSE ---
reports he has been taking fluticasone for 2 weeks. today is his last dose and he said it made his mouth, tounge, and throat tingle.
[2019-02-24] MEDS: diphenhydrAMINE 25 MG TABLET PO (03:41)
[2019-02-24 04:17] VITALS: BP 123/80; PULSE 74; O2SAT 96
== END 2019-02-24 04:18 | disposition home or self-care (01) ==
PROVIDERS: Emergency Provider Emergency Medicine; PCP Family Medicine
DX: R07.0 Pain in throat (principal)
CPT/HCPCS: 99282

== ENCOUNTER 2019-03-19 12:39 | Emergency (ER) | payer OTHER, MEDICAID, SELFPAY ==
[2019-03-19 12:40] VITALS: BP 122/70; PULSE 80; RESP 18; TEMP 36.6; O2SAT 100
--- NOTE | 2019-03-19 13:03 | PC.NURSE ---
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 is compliant and changed into green scrubs. Pt. unable to give Urine sample. Pt. is sitting down calm on gurney.
[2019-03-19 13:20] LABS: Add Manual Diff / Slide Review NO; Basophils Absolute Auto 100 /uL (0-100); Basophils Percent Auto 0.9 % (0-2); Eosinophils Absolute Auto 200 /uL (0-450); Eosinophils Percent Auto 3.1 % (2-4); Hematocrit 43.3 % (41-53); Hemoglobin 15.3 g/dL (13.5-17.5); Lymphocytes Absolute Auto 2100 /uL (1100-4500); Lymphocytes Percent Auto 35.7 % (25-40); Mean Corpuscular HGB Conc 35.2 % (30-36); Mean Corpuscular Hemoglobin 30.6 PG (26-34); Mean Corpuscular Volume 86.8 fL (80-100); Monocytes Absolute Auto 400 /uL (0-900); Monocytes Percent Auto 7.4 % (3-14); Neutrophils Absolute Auto 3200 /uL (1500-7000); Neutrophils Percent Auto 52.9 % (50-75); Platelet Count 173 X10^3/uL (150-400); Red Blood Cell Count 4.99 X10^6/uL (4.5-5.9); Red Cell Distribution Width 13.4 % (11.6-14.8)
--- NOTE | 2019-03-19 13:21 | ED_ITS ---
HPI - Psych <Tiffany Gale DO - Last Filed: 03/20/19 07:20> General Chief Complaint: Psychiatric Symptoms Stated Complaint: depression,suicidal thoughts/tendancies Time Seen by Provider: 03/19/19 13:21 Source: patient and other Mode of arrival: Ambulatory Limitations: no limitations History of Present Illness HPI Narrative: This is a 23-year-old male comes to the emergency department with complaint of suicidal ideation. Patient states that he been having increasing thoughts of suicide and killing himself. He states his would be to take a knife and cut his wrists. He states he does not have access to firearms or any firearms in his home. He states he has attempted once before. He states he has had 1 prior hospitalization for mental health. He states he has a history of depression, anxiety and PTSD. He takes quetiapine 100 mg nightly. He states he has not had any new changes to his medication dose recently. Patient states he has had increasing financial stress and the threat of homelessness that his probably been driving some of his thoughts. He states he has not been sleeping well and realized that he has been having some issues with electric shortage is so his CPAP has not been on the last several nights. He thinks he has been taking his medication regularly and normally does but thinks he may have missed a dose the night before he is not sure. He denies any fevers, no chest pain or shortness of breath. No abdominal pain. He felt a little nauseated and tired yesterday. No vomiting. No other GI or urinary symptoms. Related Data Home Medications Medication Instructions Recorded Confirmed Respironics DreamStation Auto CPAP #1 ea 04/30/18 03/19/19 fluticasone propionate 1 spray INTRANASAL DIRECTED 03/19/19 03/19/19 Previous Rx's Medication Instructions Recorded albuterol sulfate 1 puff INHALATION Q6H PRN #1 gram 01/07/18 lorazepam [Ativan] 0.5 mg PO BID PRN #7 tab 01/29/19 quetiapine 100 mg tablet 100 mg PO BEDTIME #30 tab 03/11/19 Allergies Allergy/AdvReac Type Severity Reaction Status Date / Time No Known Drug Allergies Allergy Verified 02/10/19 15:45 Review of Systems <DO Jamaal Arrington Last Filed: 03/20/19 07:20> Review of Systems ROS Unobtainable: All systems reviewed & are unremarkable except as noted in HPI and below Psychiatric Psychiatric: Reports as per HPI, Reports abnormal sleep pattern, Reports anxiety, Reports depression, Denies auditory hallucinations, Denies hopelessnes s, Denies homicidal ideation and Reports suicidal ideation Patient History <Tiffany Gale DO - Last Filed: 03/20/19 07:20> Medical History Anxiety (Chronic ~2014) Depression (Chronic ~2002) Foot pain (Chronic ~2007) Hypersomnia (Chronic) Insomnia (Chronic) Obstructive sleep apnea syndrome (Chronic 05/09/17) Post traumatic stress disorder (PTSD) (Chronic ~2015) Social History marital status: unmarried,single occupational status: employed Smoking Status: Never smoker alcohol intake: current substance use type: does not use Smoking Status: Never smoker alcohol intake frequency: holidays/special occasions only Substance Use Type: does not use Exam <Tiffany Gale DO - Last Filed: 03/20/19 07:20> Narrative Exam Narrative: GENERAL: Alert and oriented x three, obese, well-appearing male in mild distress. HEENT: Head normocephalic, atraumatic, EOMI, pupils reactive, face symmetric, moist mucous membranes NECK: Supple, full range of motion CARDIOVASCULAR: Regular rate and rhythm without murmurs, rubs or gallops. RESPIRATORY: Breath sounds equal bilaterally, no wheezes rales or rhonchi. ABDOMEN: Soft, nontender. Normoactive bowel sounds all 4 quadrants. No guarding or rebound, rigidity, no mass : No CVA tenderness EXTREMITIES: Normal range of motion, no clubbing or edema. Neurovascularly intact NEUROLOGICAL: Cranial nerves II through XII grossly intact. Moving all extremities SKIN: Warm, dry, no petechiae, no rashes or lesions PSYCH: Suicidal ideation, homicidal ideation. No hallucinations. Initial Vital Signs Initial Vital Signs: Vital Signs Temperature 97.8 F 03/19/19 12:40 Pulse Rate 80 03/19/19 12:40 Respiratory Rate 18 03/19/19 12:40 Blood Pressure 122/70 03/19/19 12:40 Pulse Oximetry 100 03/19/19 12:40 <Tim Longo DO - Last Filed: 03/19/19 21:53> Initial Vital Signs Initial Vital Signs: Vital Signs Temperature 97.8 F 03/19/19 12:40 Pulse Rate 80 03/19/19 12:40 Respiratory Rate 18 03/19/19 12:40 Blood Pressure 122/70 03/19/19 12:40 Pulse Oximetry 100 03/19/19 12:40 Course <Tiffany Gale DO - Last Filed: 03/20/19 07:20> Orders Ordered: Discontinued Medications Quetiapine Fumarate (Seroquel) 150 mg PO NOW ONE Stop: 03/19/19 14:01 Last Admin: 03/19/19 14:01 Dose: 150 mg Documented by: MILDRED Vital Signs Vital signs: Vital Signs - 8 hr 03/19/19 16:10 03/19/19 21:00 Pulse Rate 71 74 Respiratory Rate 20 20 Blood Pressure [Left Arm] 111/65 115/73 Pulse Oximetry 95 97 <Tim Longo DO - Last Filed: 03/19/19 21:53> Orders Ordered: Discontinued Medications Quetiapine Fumarate (Seroquel) 150 mg PO NOW ONE Stop: 03/19/19 14:01 Last Admin: 03/19/19 14:01 Dose: 150 mg Documented by: MILDRED Vital Signs Vital signs: Vital Signs - 8 hr 03/19/19 16:10 03/19/19 21:00 Pulse Rate 71 74 Respiratory Rate 20 20 Blood Pressure [Left Arm] 111/65 115/73 Pulse Oximetry 95 97 MDM - Psych <Tiffany Gale DO - Last Filed: 03/20/19 07:20> Lab Data Attestation: I reviewed the patient's lab results. Result diagrams: 03/19/19 12:59 03/19/19 12:59 Labs: Lab Results 03/19/19 03/19/19 03/19/19 Range/Units 12:59 12:59 12:59 WBC 6.0 (4.5-11.0) X10^3/uL RBC 4.99 (4.5-5.9) X10^6/uL Hgb 15.3 (13.5-17.5) g/dL Hct 43.3 (41-53) % MCV 86.8 (80-100) fL MCH 30.6 (26-34) PG MCHC 35.2 (30-36) % RDW 13.4 (11.6-14.8) % Plt Count 173 (150-400) X10^3/uL Neut % (Auto) 52.9 (50-75) % Lymph % (Auto) 35.7 (25-40) % Walker % (Auto) 7.4 (3-14) % Eos % (Auto) 3.1 (2-4) % Baso % (Auto) 0.9 (0-2) % Neut # (Auto) 3200 (0412-5795) /uL Lymph # (Auto) 2100 (6656-6463) /uL Walker # (Auto) 400 (0-900) /uL Eos # (Auto) 200 (0-450) /uL Baso # (Auto) 100 (0-100) /uL Sodium 142 (137-145) mmol/L Potassium 4.0 (3.4-5.1) mmol/L Chloride 107 (98-107) mmol/L Carbon Dioxide 26 (22-32) mmol/L BUN 10 (9-20) mg/dL Creatinine 0.80 (0.66-1.25) mg/dL Estimated GFR > 60.0 (>60) mL/min BUN/Creatinine Ratio 12.5 (6-22) Glucose 105 H (70-100) mg/dL Calcium 9.5 (8.4-10.2) mg/dL Total Bilirubin 1.6 H (0.2-1.3) mg/dL AST 82 H (17-59) IU/L ALT 129 H (<50) IU/L Alkaline Phosphatase 58 (38-126) U/L Total Protein 7.7 (6.3-8.2) g/dL Albumin 4.8 (3.5-5.0) g/dL Globulin 2.9 (1.7-4.1) g/dL Albumin/Globulin Ratio 1.7 (1.0-2.8) Lipase (23-300) U/L TSH 1.64 (0.47-4.68) uIU/mL Salicylates < 1.0 (<20) mg/dL U Morph 300 ng/mL cutoff (Negative) Ur Oxycodone Screen (Negative) Urine Methadone Screen (Negative) Acetaminophen < 10 L (10-30) ug/mL Ur Barbiturates Screen (Negative) U Tricyclic Antidepress (Negative) Ur Phencyclidine Scrn (Negative) Ur Amphetamines Screen (Negative) U Methamphetamines Scrn (Negative) Ur MDMA Scrn (Ecstasy) (Negative) U Benzodiazepines Scrn (Negative) Urine Cocaine Screen (Negative) U Marijuana (THC) Screen (Negative) Ethyl Alcohol < 10 ( - 10) mg/dL 03/19/19 03/19/19 03/19/19 Range/Units 15:00 16:57 16:57 WBC (4.5-11.0) X10^3/uL RBC (4.5-5.9) X10^6/uL Hgb (13.5-17.5) g/dL Hct (41-53) % MCV (80-100) fL MCH (26-34) PG MCHC (30-36) % RDW (11.6-14.8) % Plt Count (150-400) X10^3/uL Neut % (Auto) (50-75) % Lymph % (Auto) (25-40) % Walker % (Auto) (3-14) % Eos % (Auto) (2-4) % Baso % (Auto) (0-2) % Neut # (Auto) (6069-1300) /uL Lymph # (Auto) (6217-2065) /uL Walker # (Auto) (0-900) /uL Eos # (Auto) (0-450) /uL Baso # (Auto) (0-100) /uL Sodium (137-145) mmol/L Potassium (3.4-5.1) mmol/L Chloride (98-107) mmol/L Carbon Dioxide (22-32) mmol/L BUN (9-20) mg/dL Creatinine (0.66-1.25) mg/dL Estimated GFR (>60) mL/min BUN/Creatinine Ratio (6-22) Glucose (70-100) mg/dL Calcium (8.4-10.2) mg/dL Total Bilirubin (0.2-1.3) mg/dL AST (17-59) IU/L ALT (<50) IU/L Alkaline Phosphatase (38-126) U/L Total Protein (6.3-8.2) g/dL Albumin (3.5-5.0) g/dL Globulin (1.7-4.1) g/dL Albumin/Globulin Ratio (1.0-2.8) Lipase 31 (23-300) U/L TSH (0.47-4.68) uIU/mL Salicylates (<20) mg/dL U Morph 300 ng/mL cutoff Negative (Negative) Ur Oxycodone Screen Negative (Negative) Urine Methadone Screen Negative (Negative) Acetaminophen < 10 L (10-30) ug/mL Ur Barbiturates Screen Negative (Negative) U Tricyclic Antidepress Positive H (Negative) Ur Phencyclidine Scrn Negative (Negative) Ur Amphetamines Screen Negative (Negative) U Methamphetamines Scrn Negative (Negative) Ur MDMA Scrn (Ecstasy) Negative (Negative) U Benzodiazepines Scrn Negative (Negative) Urine Cocaine Screen Negative (Negative) U Marijuana (THC) Screen Negative (Negative) Ethyl Alcohol ( - 10) mg/dL Urine Dip Bedside Urine Glucose Negative Bedside Urine Bilirubin - Negative Bedside Urine Ketone - Negative Urine Specific [place] 1.025 Bedside Urine Occult Blood - Negative Bedside Urine pH 6.0 Bedside Urine Protein - Negative Bedside Urine Urobilinogen - Negative Bedside Urine Nitrite - Negative Bedside Urine Leukocytes - Negative Esterase Imaging Data US - abdomen: Radiologist's impression: [place] [address] Ultrasound Report Signed Patient: Brandon Jones WMR#: [id number] : 1995Acct:[id number] Age/Sex: 23 / MDate of Service: 03/19/19 Loc: ED Accession Number: [id number] Procedure: US abdomen complete Ordering Provider: Tiffany Gale D.O. PROCEDURE: US ABDOMEN COMPLETE INDICATIONS: ELEVATED LIVER ENZYMES TECHNIQUE: Real-time scanning was performed of the abdominal and retroperitoneal organs, with image documentation. COMPARISON: None. FINDINGS: Liver: Liver is normal in size and homogeneous in echotexture, diffusely mildly hyperechoic consistent with fatty infiltration. Gallbladder: Gallbladder appears normal Biliary ducts: Intrahepatic bile ducts are non-dilated. Extrahepatic bile duct caliber measures 4.5 mm. Normal is 6-7 mm or less in diameter, or 10 mm or less post-cholecystectomy. Pancreas: Visualized portions of the pancreas are sonographically normal. Spleen: Spleen is mildly enlarged in size at 13.9 cm craniocaudad and homogeneous in echotexture. Kidneys: Kidneys are normal in size and echotexture. Right kidney measures 10.9 cm long; left kidney measures 10.8 cm long. No hydronephrosis or nephrolithiasis. No solid masses. Aorta: Visualized aorta is normal in caliber at less than 3 cm. Iliacs: Proximal common iliac arteries are normal in caliber at less than 2.5 cm. IVC: Intrahepatic inferior vena cava is patent. Miscellaneous: No free abdominal fluid. IMPRESSION: Mild fatty infiltration throughout the liver, mild splenomegaly. No gallstone or biliary distention is found. Dictated by: Jose Malone M.D. on 03/19/2019 at 14:35 Approved by: Jose Malone M.D. on 03/19/2019 at 14:36 MDM Narrative Medical decision making narrative: Patient comes in with thoughts of suicidal ideation. He is interested in voluntary placement. Patient is open to trying a little bit additional dose of quetiapine more than his typical dose. He normally takes at bedtime but is open to taking here in the ED. His LFTs are slightly elevated, plan for ultrasound and will do repeat 4 hours Tylenol level although patient does not admit to ingestion. Patient's repeat Tylenol level shows normal at 4 hour. US shows fatty liver with no other acute changes, this may be the cause of his elevated LFTs. Patient has been asymptomatic. Patient to follow up outpatient regarding liver enzymes in the next several weeks. UDS positive for tricyclics. Patient medically cleared or voluntary placement. Patient signed out to Dr. Longo while awaiting placement. <Tim Longo DO - Last Filed: 03/19/19 21:53> Lab Data Labs: Lab Results 03/19/19 03/19/19 03/19/19 Range/Units 12:59 12:59 12:59 WBC 6.0 (4.5-11.0) X10^3/uL RBC 4.99 (4.5-5.9) X10^6/uL Hgb 15.3 (13.5-17.5) g/dL Hct 43.3 (41-53) % MCV 86.8 (80-100) fL MCH 30.6 (26-34) PG MCHC 35.2 (30-36) % RDW 13.4 (11.6-14.8) % Plt Count 173 (150-400) X10^3/uL Neut % (Auto) 52.9 (50-75) % Lymph % (Auto) 35.7 (25-40) % Walker % (Auto) 7.4 (3-14) % Eos % (Auto) 3.1 (2-4) % Baso % (Auto) 0.9 (0-2) % Neut # (Auto) 3200 (0100-6174) /uL Lymph # (Auto) 2100 (2083-1368) /uL Walker # (Auto) 400 (0-900) /uL Eos # (Auto) 200 (0-450) /uL Baso # (Auto) 100 (0-100) /uL Sodium 142 (137-145) mmol/L Potassium 4.0 (3.4-5.1) mmol/L Chloride 107 (98-107) mmol/L Carbon Dioxide 26 (22-32) mmol/L BUN 10 (9-20) mg/dL Creatinine 0.80 (0.66-1.25) mg/dL Estimated GFR > 60.0 (>60) mL/min BUN/Creatinine Ratio 12.5 (6-22) Glucose 105 H (70-100) mg/dL Calcium 9.5 (8.4-10.2) mg/dL Total Bilirubin 1.6 H (0.2-1.3) mg/dL AST 82 H (17-59) IU/L ALT 129 H (<50) IU/L Alkaline Phosphatase 58 (38-126) U/L Total Protein 7.7 (6.3-8.2) g/dL Albumin 4.8 (3.5-5.0) g/dL Globulin 2.9 (1.7-4.1) g/dL Albumin/Globulin Ratio 1.7 (1.0-2.8) Lipase (23-300) U/L TSH 1.64 (0.47-4.68) uIU/mL Salicylates < 1.0 (<20) mg/dL U Morph 300 ng/mL cutoff (Negative) Ur Oxycodone Screen (Negative) Urine Methadone Screen (Negative) Acetaminophen < 10 L (10-30) ug/mL Ur Barbiturates Screen (Negative) U Tricyclic Antidepress (Negative) Ur Phencyclidine Scrn (Negative) Ur Amphetamines Screen (Negative) U Methamphetamines Scrn (Negative) Ur MDMA Scrn (Ecstasy) (Negative) U Benzodiazepines Scrn (Negative) Urine Cocaine Screen (Negative) U Marijuana (THC) Screen (Negative) Ethyl Alcohol < 10 ( - 10) mg/dL 03/19/19 03/19/19 03/19/19 Range/Units 15:00 16:57 16:57 WBC (4.5-11.0) X10^3/uL RBC (4.5-5.9) X10^6/uL Hgb (13.5-17.5) g/dL Hct (41-53) % MCV (80-100) fL MCH (26-34) PG MCHC (30-36) % RDW (11.6-14.8) % Plt Count (150-400) X10^3/uL Neut % (Auto) (50-75) % Lymph % (Auto) (25-40) % Walker % (Auto) (3-14) % Eos % (Auto) (2-4) % Baso % (Auto) (0-2) % Neut # (Auto) (0459-9240) /uL Lymph # (Auto) (4401-8487) /uL Walker # (Auto) (0-900) /uL Eos # (Auto) (0-450) /uL Baso # (Auto) (0-100) /uL Sodium (137-145) mmol/L Potassium (3.4-5.1) mmol/L Chloride (98-107) mmol/L Carbon Dioxide (22-32) mmol/L BUN (9-20) mg/dL Creatinine (0.66-1.25) mg/dL Estimated GFR (>60) mL/min BUN/Creatinine Ratio (6-22) Glucose (70-100) mg/dL Calcium (8.4-10.2) mg/dL Total Bilirubin (0.2-1.3) mg/dL AST (17-59) IU/L ALT (<50) IU/L Alkaline Phosphatase (38-126) U/L Total Protein (6.3-8.2) g/dL Albumin (3.5-5.0) g/dL Globulin (1.7-4.1) g/dL Albumin/Globulin Ratio (1.0-2.8) Lipase 31 (23-300) U/L TSH (0.47-4.68) uIU/mL Salicylates (<20) mg/dL U Morph 300 ng/mL cutoff Negative (Negative) Ur Oxycodone Screen Negative (Negative) Urine Methadone Screen Negative (Negative) Acetaminophen < 10 L (10-30) ug/mL Ur Barbiturates Screen Negative (Negative) U Tricyclic Antidepress Positive H (Negative) Ur Phencyclidine Scrn Negative (Negative) Ur Amphetamines Screen Negative (Negative) U Methamphetamines Scrn Negative (Negative) Ur MDMA Scrn (Ecstasy) Negative (Negative) U Benzodiazepines Scrn Negative (Negative) Urine Cocaine Screen Negative (Negative) U Marijuana (THC) Screen Negative (Negative) Ethyl Alcohol ( - 10) mg/dL Urine Dip Bedside Urine Glucose Negative Bedside Urine Bilirubin - Negative Bedside Urine Ketone - Negative Urine Specific [place] 1.025 Bedside Urine Occult Blood - Negative Bedside Urine pH 6.0 Bedside Urine Protein - Negative Bedside Urine Urobilinogen - Negative Bedside Urine Nitrite - Negative Bedside Urine Leukocytes - Negative Esterase MDM Narrative Medical decision making narrative: Dr longo: Received turned over from day provider. Reviewed patient's history and physical. Patient has been accepted to [facility]. He was transported without any incident. He has been voluntary his entire stay. Discharge Plan Departure Patient Disposition: Xfer Psychiatric Hosp Clinical Impression: Suicidal ideation Discharge Date/Time: 03/19/19 21:15 Referrals: Мария Carey DO [Primary Care Provider] -
[2019-03-19 13:27] LABS: Acetaminophen < 10 ug/mL (10-30); Alanine Aminotransferase 129 IU/L (<50); Albumin 4.8 g/dL (3.5-5.0); Albumin Globulin Ratio 1.7 (1.0-2.8); Alkaline Phosphatase 58 U/L (38-126); Aspartate Aminotransferase 82 IU/L (17-59); BUN Creatinine Ratio 12.5 (6-22); Bilirubin Total 1.6 mg/dL (0.2-1.3); Blood Urea Nitrogen 10 mg/dL (9-20); Calcium 9.5 mg/dL (8.4-10.2); Carbon Dioxide 26 mmol/L (22-32); Chloride 107 mmol/L (98-107); Estimated Glomerular Filt Rate > 60.0 mL/min (>60); Ethanol (ETOH) < 10 mg/dL; Globulin 2.9 g/dL (1.7-4.1); Glucose 105 mg/dL (70-100); HEMOLYSIS 15 (0-50); Salicylate < 1.0 mg/dL (<20); Sodium 142 mmol/L (137-145); Total Protein 7.7 g/dL (6.3-8.2)
--- NOTE | 2019-03-19 13:42 | DI.US.S_ITS ---
PROCEDURE: US ABDOMEN COMPLETE INDICATIONS: ELEVATED LIVER ENZYMES TECHNIQUE: Real-time scanning was performed of the abdominal and retroperitoneal organs, with image documentation. COMPARISON: None. FINDINGS: Liver: Liver is normal in size and homogeneous in echotexture, diffusely mildly hyperechoic consistent with fatty infiltration. Gallbladder: Gallbladder appears normal Biliary ducts: Intrahepatic bile ducts are non-dilated. Extrahepatic bile duct caliber measures 4.5 mm. Normal is 6-7 mm or less in diameter, or 10 mm or less post-cholecystectomy. Pancreas: Visualized portions of the pancreas are sonographically normal. Spleen: Spleen is mildly enlarged in size at 13.9 cm craniocaudad and homogeneous in echotexture. Kidneys: Kidneys are normal in size and echotexture. Right kidney measures 10.9 cm long; left kidney measures 10.8 cm long. No hydronephrosis or nephrolithiasis. No solid masses. Aorta: Visualized aorta is normal in caliber at less than 3 cm. Iliacs: Proximal common iliac arteries are normal in caliber at less than 2.5 cm. IVC: Intrahepatic inferior vena cava is patent. Miscellaneous: No free abdominal fluid. IMPRESSION: Mild fatty infiltration throughout the liver, mild splenomegaly. No gallstone or biliary distention is found. Dictated by: Jose Malone M.D. on 03/19/2019 at 14:35 Approved by: Jose Malone M.D. on 03/19/2019 at 14:36
[2019-03-19] MEDS: QUETIAPINE 100 MG TABLET 150 MG PO (14:01)
[2019-03-19 14:04] LABS: Thyroid Stimulating Hormone 1.64 uIU/mL (0.47-4.68)
[2019-03-19 15:20] LABS: Ur Creatinine Normal (Normal); Ur Specific Gravity Normal (Normal); Urine pH Normal (Normal)
[2019-03-19 15:21] LABS: UR Morphine/Opiate cutoff 300 Negative (Negative); Urine Amphetamines Negative (Negative); Urine Barbiturates Negative (Negative); Urine Benzodiazepines Negative (Negative); Urine Cocaine Negative (Negative); Urine MDMA Negative (Negative); Urine Methadone Negative (Negative); Urine Methamphetamines Negative (Negative); Urine Oxycodone Negative (Negative); Urine Phencyclidine Negative (Negative); Urine Tetrahydrocannabinol Negative (Negative); Urine Tricyclic Antidepressant Positive (Negative)
--- NOTE | 2019-03-19 15:45 | PC.NURSE ---
patient got up used bathroom was calm and polite
[2019-03-19 16:10] VITALS: BP 111/65; PULSE 71; RESP 20; O2SAT 95
--- NOTE | 2019-03-19 16:18 | PC.NURSE ---
patient has eyes closed calm and relaxing laying down
--- NOTE | 2019-03-19 16:19 | CM.SWNOTE ---
CLAM DREDGER Note: Received consult for CLAM DREDGER for inpatient voluntary psychiatric placement. Per notes, patient brought to [facility] by CLAM DREDGER/Robyn Vitale after session today. CLAM DREDGER spoke with Robyn Valdes whom indicated that she felt patient appropriate for inpatient placement for suicidal ideation (please refer to [facility] note for details). Per Robyn patient needs to be medically stable prior to voluntary placement. Spoke with CM health club manager/[place] to determine next steps. It was decided that placement would be attempted based on assessment completed by CLAM DREDGER/Robyn Vitale today. Placed call to [facility] and spoke with Valerie. She reports that they do have male bed. Printed all notes included Robyn Vitale's note from today and asked ED/TECHNICAL SERVICES CONSULTANT to fax to [facility] once patient has been deemed medically stable. Dr. Gale updated and predicts once labs return he will be medically cleared. ED staff also instructed to attempt additional psychiatric placements this PM if [facility] refuses. CM/health club manager Elsie updated. P: Pending. [facility] will accept this pm. ANTONIO Marie
--- NOTE | 2019-03-19 16:45 | PC.NURSE ---
patient is calm and playing game or texting on phone
--- NOTE | 2019-03-19 17:02 | PC.NURSE ---
his mom is on the way in to visit him
--- NOTE | 2019-03-19 17:05 | PC.NURSE ---
provided chairs for 3 visitors
--- NOTE | 2019-03-19 17:15 | PC.NURSE ---
patient visiting with family
[2019-03-19 17:23] LABS: Acetaminophen < 10 ug/mL (10-30)
[2019-03-19 19:49] LABS: Lipase 31 U/L (23-300)
--- NOTE | 2019-03-19 20:16 | PC.NURSE ---
patient is quietly slwwping
--- NOTE | 2019-03-19 20:59 | PC.NURSE ---
patients ride is here got vitals
[2019-03-19 21:00] VITALS: BP 115/73; PULSE 74; RESP 20; O2SAT 97
--- NOTE | 2019-03-19 21:36 | PC.NURSE ---
2114 PT report given by Shaunna Ladd RN to [facility], transport report given to [facility] crew Ali by RUSSELL Nova and pt departed ED at 2114. Pt calm and cooperative at departure.
== END 2019-03-19 21:15 ==
PROVIDERS: Emergency Medicine; Emergency Provider Emergency Medicine; PCP Family Medicine
DX: R45.851 Suicidal ideations (principal); R94.5 Abnormal results of liver function studies
CPT/HCPCS: 36415; 76700; 80053; 80305; 80320; 80329; 81003; 83690; 84443; 85025; 99282; 99284; G0480

== ENCOUNTER 2019-04-20 01:16 | Emergency (ER) | payer OTHER, MEDICAID, SELFPAY ==
[2019-04-20 01:25] VITALS: BP 146/81; PULSE 84; RESP 15; TEMP 36.6; O2SAT 98; BMI 36.9
--- NOTE | 2019-04-20 01:27 | ED.ANXIETY ---
HPI - Anxiety General Chief Complaint: Anxiety Stated Complaint: ANXIETY Time Seen by Provider: 04/20/19 01:18 Source: patient Mode of arrival: Ambulatory Limitations: no limitations History of Present Illness HPI narrative: 23-year-old male with a history of anxiety here fluid states is a panic attack. He states the symptoms started several hours ago. Unsure his exactly what triggered the symptoms. Stated that he did not have any of his medications at home to help him with the symptoms. Described palpitations. Upon my evaluation patient states the symptoms have improved somewhat from their onset. Related Data Home Medications Medication Instructions Recorded Confirmed Respironics DreamStation Auto CPAP #1 ea 04/30/18 03/27/19 fluticasone propionate 1 spray INTRANASAL DIRECTED 03/19/19 03/27/19 Previous Rx's Medication Instructions Recorded albuterol sulfate 1 puff INHALATION Q6H PRN #1 gram 01/07/18 quetiapine 100 mg tablet 100 mg PO BEDTIME #30 tab 03/11/19 lorazepam 0.5 mg tablet 0.5 mg PO BID PRN #10 tab 03/27/19 Allergies Allergy/AdvReac Type Severity Reaction Status Date / Time No Known Drug Allergies Allergy Verified 03/27/19 12:09 Review of Systems Constitutional Constitutional: Denies fever(s) Cardiovascular Cardiovascular: Denies chest pain and Reports palpitations Respiratory Comments: Breathing fast Gastrointestinal Gastrointestinal: Reports nausea and Denies vomiting Psychiatric Psychiatric: Reports anxiety, Reports panic attacks and Denies suicidal ideation Endocrine Endocrine: Reports palpitations Patient History Medical History Anxiety (Chronic ~2014) Depression (Chronic ~2002) Foot pain (Chronic ~2007) Hypersomnia (Chronic) Insomnia (Chronic) Obstructive sleep apnea syndrome (Chronic 05/09/17) Post traumatic stress disorder (PTSD) (Chronic ~2015) Social History marital status: unmarried,single occupational status: employed Smoking Status: Never smoker alcohol intake: current substance use type: does not use Smoking Status: Never smoker alcohol intake frequency: holidays/special occasions only Substance Use Type: does not use Exam Initial Vital Signs Initial Vital Signs: Vital Signs Temperature 97.9 F 04/20/19 01:25 Pulse Rate 84 04/20/19 01:25 Respiratory Rate 15 04/20/19 01:25 Blood Pressure 146/81 H 04/20/19 01:25 Pulse Oximetry 98 04/20/19 01:25 Const General: cooperative, comfortable, No acute distress and No in distress Limitations: mental status not altered HENMT Head: normal to inspection and normocephalic Resp Effort & Inspection: normal respiratory effort Cardio Rate: regular rate Rhythm: regular rhythm Skin Lesions: no lesions Rashes: no rashes Psych Appearance: grossly normal and well kempt Affect: normal affect Attitude: cooperative Thought Content: suicidality Course Orders Ordered: ED Orders 04/20/19 01:28 EKG-12 Lead Stat Discontinued Medications Lorazepam (Ativan) 0.5 mg PO NOW ONE Stop: 04/20/19 01:27 Last Admin: 04/20/19 01:44 Dose: Not Given Documented by: RAYMOND Vital Signs Vital signs: Vital Signs - 8 hr 04/20/19 01:25 Temperature 97.9 F Pulse Rate 84 Respiratory Rate 15 Blood Pressure 146/81 H Pulse Oximetry 98 MDM - Anxiety ECG Data Attestation: I personally reviewed and interpreted this ECG as follows: Prior ECG tracings: not available for review Interpretation: Sinus rhythm Ventricular rate 89 Normal axis Normal QRS Normal QTC No ST T wave changes MDM Narrative Medical decision making narrative: Patient was calm. No SI or HI. Patient declined the offer of Ativan. He states that it makes him too sedated. He declined the need for any other medications. He states he was feeling better. Tolerating oral intake. He was given return precautions and follow-up instructions. He expressed understanding and agreement with plan. Discharge Plan Departure Patient Disposition: Home Clinical Impression: Acute anxiety Instructions: DI for Anxiety -- Adult Activity Restrictions/Additional Instructions: Continue all of your medications as directed. Contact your primary provider for follow-up. Return to the emergency department for any new or worsening symptoms Prescriptions: No Action lorazepam [Ativan] 0.5 mg tablet 0.5 mg PO BID PRN (Reason: anxiety) Qty: 10 RF: 0 quetiapine 100 mg tablet 100 mg PO BEDTIME Qty: 30 RF: 3 fluticasone propionate 50 mcg/actuation spray,suspension 1 spray INTRANASAL DIRECTED RF: 0 albuterol sulfate 90 mcg/actuation HFA aerosol inhaler 1 puff INHALATION Q6H PRN (Reason: shortness of breath or wheezing) Qty: 1 RF: 0 (DME) Respironics DreamStation Auto CPAP Qty: 1 RF: 0 Referrals: Мария Carey DO [Primary Care Provider] -
== END 2019-04-20 02:05 | disposition home or self-care (01) ==
PROVIDERS: Emergency Provider Emergency Medicine; PCP Family Medicine
DX: F41.9 Anxiety disorder, unspecified (principal)
CPT/HCPCS: 93005; 99282; 99283

== ENCOUNTER 2019-08-22 13:47 | Emergency (ER) | payer OTHER, MEDICAID, SELFPAY ==
[2019-08-22 13:53] VITALS: BP 135/77; PULSE 107; RESP 20; TEMP 37.1; O2SAT 98; BMI 34.7
[2019-08-22 14:33] VITALS: BP 126/75; PULSE 75; RESP 12; O2SAT 100
--- NOTE | 2019-08-22 14:36 | ED.NEUROSD ---
HPI - Neuro Symptoms/Deficit General Chief Complaint: Neuro Symptoms/Deficit Stated Complaint: Numbness/Tingling in face and both hands Time Seen by Provider: 08/22/19 14:33 Source: patient Mode of arrival: Ambulatory Limitations: no limitations History of Present Illness HPI Narrative: This is a 23-year-old male comes emergency department with complaint of tingling on both side of his face and his upper extremities. Patient states that he has noticed symptoms for about 24 hours is sort of intermittent does not seem to be related to anything in particular. He has not had fevers common side mild headache intermittently. No fevers. No vision changes. No nausea or vomiting. No difficulty with speech. No difficulty with movement, difficulty ambulation to or numbness in his extremities. 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 The rash is very small erythematous bumps particularly over the elbows. Patient has not had any chest pain, no shortness of breath, no other GI or urinary symptoms. Patient has not had any rash elsewhere. He is not currently on any medications. He does have a history of anxiety and depression as states his he had mild anxiety recently but feels like it is under control and he states his depression has not been issue at all lately. He also has a history of BUZZ. He denies any other medical issues currently. Denies any tobacco, alcohol or illicit. On Anticoagulants: No Related Data Home Medications Medication Instructions Recorded Confirmed Respironics DreamStation Auto CPAP #1 ea 04/30/18 06/10/19 fluticasone propionate 1 spray INTRANASAL DIRECTED 03/19/19 06/10/19 Previous Rx's Medication Instructions Recorded albuterol sulfate 90 mcg/actuation 1 puff INHALATION Q6H PRN #1 gram 06/10/19 aerosol inhaler benzonatate 100 mg capsule 100 mg PO BID PRN #14 cap 06/10/19 Allergies Allergy/AdvReac Type Severity Reaction Status Date / Time No Known Drug Allergies Allergy Verified 08/22/19 13:53 Review of Systems Review of Systems ROS Unobtainable: All systems reviewed & are unremarkable except as noted in HPI and below Patient History Medical History Anxiety (Chronic ~2015) Depression (Chronic ~2002) Foot pain (Chronic ~2007) Hypersomnia (Chronic) Insomnia (Chronic) Obstructive sleep apnea syndrome (Chronic 05/09/17) Post traumatic stress disorder (PTSD) (Chronic ~2015) URI (upper respiratory infection) (Acute) Social History marital status: unmarried,single occupational status: employed Smoking Status: Never smoker alcohol intake: current substance use type: does not use Smoking Status: Never smoker alcohol intake frequency: holidays/special occasions only Substance Use Type: does not use Exam Narrative Exam Narrative: GEN: well nourished, well appearing male, alert and oriented x 3, patient appears to be in mild distress. HEENT: Atraumatic, pupils are equal round reactive to light, extraocular movements are intact, nares are clear, TMs are clear with no fluid, there is no conjunctival pallor. Throat is clear without any exudates, erythema, tonsillar enlargement or uvular deviation, no facial droop. HEART: Regular rate and rhythm without murmur, clicks, rubs. Pulses are equal in upper extremities LUNGS:Lungs clear to auscultation, no wheezes, rales, crackles, chest moves symmetrically ABD:bowel sounds normal, soft, non-tender, no guarding, rebound, rigidity, no masses noted, no hepatosplenomegaly MSCL: Non-tender, no muscle atrophy, muscles strength 5/5 upper and lower extremities, full range of motion, normal gait NEURO:CN 2-12 intact, sensation normal, Finger nose finger test normal, heel kwok test normal, romberg normal SKIN: Patient has hyperpigmentation consistent with a cuevas and his bilateral upper extremities just above the elbow. He does have some small raised papules difficult to tell if there is any erythema secondary to his hyper pigmentation but is not appreciated well. No excoriation. No blisters or vesicles. No other skin changes. PSYCH: mild anxiety, no depression currently, denies any other psychiatric issues. Initial Vital Signs Initial Vital Signs: Vital Signs Temperature 98.8 F 08/22/19 13:53 Pulse Rate 107 H 08/22/19 13:53 Respiratory Rate 20 08/22/19 13:53 Blood Pressure 135/77 08/22/19 13:53 Pulse Oximetry 98 08/22/19 13:53 Course Orders Ordered: ED Orders 08/22/19 15:46 Basic Metabolic Panel Stat Complete Blood Count AUTO DIFF Stat Magnesium Stat Phosphorous Stat Vital Signs Vital signs: Vital Signs - 8 hr 08/22/19 13:53 08/22/19 14:33 08/22/19 16:53 Temperature 98.8 F Pulse Rate 107 H 75 85 Respiratory Rate 20 12 16 Blood Pressure 135/77 Blood Pressure [Left Arm] 126/75 112/67 Pulse Oximetry 98 100 98 08/22/19 16:54 Temperature Pulse Rate 75 Respiratory Rate Blood Pressure 112/67 Blood Pressure [Left Arm] Pulse Oximetry 98 MDM - Neuro Symptoms/Deficit Lab Data Attestation: I reviewed the patient's lab results. Result diagrams: 08/22/19 15:46 08/22/19 15:46 Labs: Lab Results 08/22/19 08/22/19 Range/Units 15:46 15:46 WBC 8.2 (4.5-11.0) X10^3/uL RBC 5.43 (4.5-5.9) X10^6/uL Hgb 16.8 (13.5-17.5) g/dL Hct 47.6 (41-53) % MCV 87.6 (80-100) fL MCH 31.0 (26-34) PG MCHC 35.4 (30-36) % RDW 12.9 (11.6-14.8) % Plt Count 216 (150-400) X10^3/uL Neut % (Auto) 67.2 (50-75) % Lymph % (Auto) 25.7 (25-40) % [place] % (Auto) 5.9 (3-14) % Eos % (Auto) 0.3 L (2-4) % Baso % (Auto) 0.9 (0-2) % Neut # (Auto) 5500 (6116-8753) /uL Lymph # (Auto) 2100 (8602-4811) /uL [place] # (Auto) 500 (0-900) /uL Eos # (Auto) 0 (0-450) /uL Baso # (Auto) 100 (0-100) /uL Sodium 140 (137-145) mmol/L Potassium 4.5 (3.4-5.1) mmol/L Chloride 107 (98-107) mmol/L Carbon Dioxide 21 L (22-32) mmol/L BUN 12 (9-20) mg/dL Creatinine 0.97 (0.66-1.25) mg/dL Estimated GFR > 60.0 (>60) mL/min BUN/Creatinine Ratio 12.4 (6-22) Glucose 103 H (70-100) mg/dL Calcium 10.3 H (8.4-10.2) mg/dL Phosphorus 2.3 L (2.5-4.5) mg/dL Magnesium 2.3 (1.6-2.3) mg/dL MDM Narrative Medical decision making narrative: Patient comes in with numbness and tingling on both his face and hands. He has had a little bit a rash for about a week my suspicion that this is the cause is less likely as he has not had any skin changes he is appreciated on his face. There is some mild reddish bumps noted on his upper extremities that he suspects is from seen at [place] at work that he has been exposed to. Patient labs do not show any major abnormalities that would likely cause his tingling. He does have a calcium that is elevated normal ranges up to 10.2. His phos is mildly decreased as well. CO2 is 21 with otherwise normal labs. No neurologic changes that are suspicious for stroke or acute neurologic event. Patient does have a history of anxiety he does not appear to be particularly anxious at this moment and denies any major issues. Plan to have patient follow-up as needed and to avoid exposures for his upper extremities. Discharge Plan Departure Patient Disposition: Home Clinical Impression: Facial tingling Discharge Date/Time: 08/22/19 16:54 Instructions: DI for Numbness/tingling Activity Restrictions/Additional Instructions: Follow-up with primary care for recheck if your symptoms are not improving. Continue any home medications as needed. 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 Return for fevers severe headaches, new vision changes, new weakness numbness or difficulty with speech, inability to ambulate, or use her extremities, persistent vomiting or other new or concerning symptoms. Prescriptions: No Action benzonatate [Tessalon Perles] 100 mg capsule 100 mg PO BID PRN (Reason: cough) Qty: 14 RF: 0 albuterol sulfate 90 mcg/actuation HFA aerosol inhaler 1 puff INHALATION Q6H PRN (Reason: shortness of breath or wheezing) Qty: 1 RF: 0 fluticasone propionate 50 mcg/actuation spray,suspension 1 spray INTRANASAL DIRECTED RF: 0 (DME) Respironics DreamStation Auto CPAP Qty: 1 RF: 0 Referrals: Мария Carey DO [Primary Care Provider] -
--- NOTE | 2019-08-22 14:40 | PC.NURSE ---
patient states that he has right sided numbness and tingling in the right side of his face and head.
[2019-08-22 15:57] LABS: Add Manual Diff / Slide Review NO; Basophils Absolute Auto 100 /uL (0-100); Basophils Percent Auto 0.9 % (0-2); Eosinophils Absolute Auto 0 /uL (0-450); Eosinophils Percent Auto 0.3 % (2-4); Hematocrit 47.6 % (41-53); Hemoglobin 16.8 g/dL (13.5-17.5); Lymphocytes Absolute Auto 2100 /uL (1100-4500); Lymphocytes Percent Auto 25.7 % (25-40); Mean Corpuscular HGB Conc 35.4 % (30-36); Mean Corpuscular Volume 87.6 fL (80-100); Monocytes Absolute Auto 500 /uL (0-900); Monocytes Percent Auto 5.9 % (3-14); Neutrophils Absolute Auto 5500 /uL (1500-7000); Neutrophils Percent Auto 67.2 % (50-75); Platelet Count 216 X10^3/uL (150-400); Red Blood Cell Count 5.43 X10^6/uL (4.5-5.9); Red Cell Distribution Width 12.9 % (11.6-14.8); White Blood Cell Count 8.2 X10^3/uL (4.5-11.0)
[2019-08-22 16:08] LABS: BUN Creatinine Ratio 12.4 (6-22); Blood Urea Nitrogen 12 mg/dL (9-20); Calcium 10.3 mg/dL (8.4-10.2); Carbon Dioxide 21 mmol/L (22-32); Chloride 107 mmol/L (98-107); Estimated Glomerular Filt Rate > 60.0 mL/min (>60); Glucose 103 mg/dL (70-100); HEMOLYSIS 16 (0-50); Magnesium 2.3 mg/dL (1.6-2.3); Phosphorous 2.3 mg/dL (2.5-4.5); Potassium 4.5 mmol/L (3.4-5.1); Sodium 140 mmol/L (137-145)
[2019-08-22 16:53] VITALS: BP 112/67; PULSE 85; RESP 16; O2SAT 98
[2019-08-22 16:54] VITALS: BP 112/67; PULSE 75; O2SAT 98
== END 2019-08-22 16:54 | disposition home or self-care (01) ==
PROVIDERS: Emergency Provider Emergency Medicine; PCP Family Medicine
DX: R20.2 Paresthesia of skin (principal); R21 Rash and other nonspecific skin eruption
CPT/HCPCS: 36415; 80048; 83735; 84100; 85025; 99283; 99284

== ENCOUNTER → 2021-03-10 13:09 | Outpatient (CLI) | payer OTHER, MEDICAID, SELFPAY ==
[2021-03-10 13:59] LABS: Add Manual Diff / Slide Review NO; Basophils Absolute Auto 0 /uL (0-100); Basophils Percent Auto 0.4 % (0-2); Eosinophils Absolute Auto 0 /uL (0-450); Eosinophils Percent Auto 0.7 % (2-4); Hematocrit 44.2 % (41-53); Hemoglobin 15.2 g/dL (13.5-17.5); Lymphocytes Absolute Auto 2200 /uL (1100-4500); Lymphocytes Percent Auto 35.1 % (25-40); Mean Corpuscular HGB Conc 34.4 % (30-36); Mean Corpuscular Hemoglobin 30.2 PG (26-34); Mean Corpuscular Volume 87.8 fL (80-100); Monocytes Absolute Auto 400 /uL (0-900); Monocytes Percent Auto 5.6 % (3-14); Neutrophils Absolute Auto 3700 /uL (1500-7000); Neutrophils Percent Auto 58.2 % (50-75); Platelet Count 178 X10^3/uL (150-400); Red Blood Cell Count 5.04 X10^6/uL (4.5-5.9); Red Cell Distribution Width 13.3 % (11.6-14.8); White Blood Cell Count 6.3 X10^3/uL (4.5-11.0)
[2021-03-10 14:31] LABS: BUN Creatinine Ratio 12.9 (6-22); Blood Urea Nitrogen 13 mg/dL (9-20); Calcium 9.7 mg/dL (8.4-10.2); Carbon Dioxide 30 mmol/L (22-32); Chloride 103 mmol/L (98-107); Estimated Glomerular Filt Rate > 60.0 mL/min (>60); Glucose 89 mg/dL (70-100); HEMOLYSIS < 15 (0-50); Potassium 4.2 mmol/L (3.4-5.1); Sodium 141 mmol/L (137-145)
[2021-03-10 15:01] LABS: Thyroid Stimulating Hormone 1.25 uIU/mL (0.47-4.68)
== END ==
PROVIDERS: PCP Family Medicine; Referring Provider Psychiatry & Neurology Psychiatry; Visit Provider Psychiatry & Neurology Psychiatry
DX: Z51.81 Encounter for therapeutic drug level monitoring (principal); F31.81 Bipolar II disorder
CPT/HCPCS: 36415; 80048; 84443; 85025

== ENCOUNTER 2022-08-09 15:00 | Emergency (ER) | payer OTHER, MEDICAID, SELFPAY ==
[2022-08-09 15:09] VITALS: BP 140/80; PULSE 90; RESP 18; TEMP 37.2; O2SAT 96; BMI 37.3
[2022-08-09] MEDS: methylPREDNISolone 125 MG/2 ML VIAL (15:20)
[2022-08-09] MEDS: EPINEPHrine 1 MG/ML (15:20)
--- NOTE | 2022-08-09 15:20 | ED.ALLEREA ---
HPI - Allergic Reaction General Chief complaint: Allergic Reaction Stated complaint: Allergic reaction, swollen face Time Seen by Provider: 08/09/22 15:07 Source: patient Mode of arrival: Ambulatory History of Present Illness HPI narrative: Patient had seafood for a late lunch, about 2:00 p.m. the meal included probably fake crab meat, mangoes, and avocados. He has at all these foods previously. He has no history of food allergy. About 40 minutes into the meal he developed swelling of his lips. There is only slight airway discomfort. He is no stridor, no hoarseness. He denies difficulty breathing. Has no dyspnea or chest discomfort. He has swelling to his face and lips, no edema elsewhere. He has no rash. Denies recent illness. He has no URI symptoms, fever or cough. He took Benadryl 25 mg p.o. prior to arrival here. Related Data Home Medications Medication Instructions Recorded Confirmed Respironics DreamStation Auto CPAP #1 ea 04/30/18 03/09/22 cetirizine 10 mg capsule (Zyrtec) 10 mg PO DAILY 11/14/19 03/09/22 diphenhydramine HCl 25 mg capsule 50 mg PO BID PRN 11/14/19 03/09/22 (Benadryl) Previous Rx's Medication Instructions Recorded albuterol sulfate 90 mcg/actuation 1 puff inhalation Q6H PRN 06/10/19 aerosol inhaler shortness of breath or wheezing #1 g clonidine HCl 0.1 mg tablet 0.1 mg PO BEDTIME 90 days #90 tabs 07/27/22 gabapentin 100 mg capsule 100 mg PO Q8H PRN severe anxiety 07/27/22 #90 caps lamotrigine 200 mg tablet 200 mg PO BEDTIME 90 days #90 tabs 07/27/22 prednisone 20 mg tablet 60 mg PO DAILY 5 days #15 tabs 08/09/22 Allergies Allergy/AdvReac Type Severity Reaction Status Date / Time No Known Drug Allergies Allergy Verified 03/09/22 13:08 Review of Systems Review of Systems ROS Unobtainable: All systems reviewed & are unremarkable except as noted in HPI and below Patient History Medical History Anxiety (~2014) Depression (~2002) Foot pain (~2007) Hypersomnia Insomnia Obstructive sleep apnea syndrome (05/09/17) Post traumatic stress disorder (PTSD) (~2015) Social History marital status: unmarried,single occupational status: employed Smoking Status: Never smoker alcohol intake: current substance use type: does not use Smoking Status: Never smoker alcohol intake frequency: holidays/special occasions only Substance Use Type: does not use Exam Initial Vital Signs Initial Vital Signs: Vital Signs Temperature 99.0 F 08/09/22 15:09 Pulse Rate 90 08/09/22 15:09 Respiratory Rate 18 08/09/22 15:09 Blood Pressure 140/80 08/09/22 15:09 Pulse Oximetry 96 08/09/22 15:09 Oxygen Delivery Method Room Air 08/09/22 15:09 Const General: cooperative, healthy appearing, comfortable, well developed and well groomed HENMT Mouth: oral mucosae normal (No erythema or edema) HENMT Other: Edema to both lips, and he is left cheek. Eyes General: Yes appearance normal, both eyes and all related structures Conjunctivae: conjunctivae normal Neck Neck: normal visual inspection Resp Effort & Inspection: normal respiratory effort Auscultation: clear to auscultation bilaterally Cardio Rate: regular rate Rhythm: regular rhythm Heart Sounds: S1 normal, S2 normal and no murmurs GI Inspection: normal to inspection Palpation: soft Auscultation: normal bowel sounds Skin General: no rashes or lesions noted Neuro General: patient alert, patient awake, patient oriented x3 and no focal motor deficits Extrem General: normal to inspection, no pedal edema and no calf tenderness Psych Mood: anxious mood Course Course Course Narrative: Patient received subcu epinephrine, as well as Benadryl 25 mg IV and Solu-Medrol 125 mg IV. There is no airway tightness or dyspnea. His lungs are clear. Facial swelling is resolved. Orders Ordered: Discontinued Medications Diphenhydramine HCl (Diphenhydramine 50 Mg/Ml Vial) 25 mg IV NOW ONE Stop: 08/09/22 15:19 Last Admin: 08/09/22 15:21 Dose: 25 mg Documented By: DORINDA Epinephrine HCl (Epinephrine 1 Mg/Ml) 0.4 mg SUBCUT NOW ONE Stop: 08/09/22 15:19 Last Admin: 08/09/22 15:22 Dose: Not Given Documented By: DORINDA Methylprednisolone (Methylprednisolone 125 Mg/2 Ml Vial) 125 mg IV NOW ONE Stop: 08/09/22 15:19 Last Admin: 08/09/22 15:22 Dose: Not Given Documented By: DORINDA Vital Signs Vital signs: Vital Signs - 8 hr 08/09/22 15:09 08/09/22 15:26 08/09/22 15:30 Temperature 99.0 F Pulse Rate 90 85 Respiratory Rate 18 Blood Pressure 140/80 144/79 H 147/75 H Pulse Oximetry 96 99 Oxygen Delivery Method Room Air 08/09/22 15:30 08/09/22 16:00 08/09/22 16:00 Temperature Pulse Rate 77 74 Respiratory Rate 13 16 Blood Pressure 140/70 Pulse Oximetry 99 96 Oxygen Delivery Method 08/09/22 16:18 08/09/22 16:18 08/09/22 16:30 Temperature Pulse Rate 73 Respiratory Rate 14 Blood Pressure 133/67 128/63 Pulse Oximetry 95 Oxygen Delivery Method 08/09/22 16:30 Temperature Pulse Rate 72 Respiratory Rate 18 Blood Pressure Pulse Oximetry 94 Oxygen Delivery Method MDM - Allergic Reaction Lab Data Labs: Urine Dip Bedside Urine Glucose Negative Bedside Urine Bilirubin - Negative Bedside Urine Ketone - Negative Urine Specific [place] 1.010 Bedside Urine Occult Blood - Negative Bedside Urine pH 6.0 Bedside Urine Protein - Negative Bedside Urine Urobilinogen - Negative Bedside Urine Nitrite - Negative Bedside Urine Leukocytes - Negative Esterase Discharge Plan Departure Patient Disposition: Home Clinical Impression: Allergic reaction to food Instructions: DI for Anaphylaxis Activity Restrictions/Additional Instructions: Prednisone 60 mg daily for the next 5 days. Benadryl every 4 hours as needed for rash, itching, or facial swelling. I recommend you keep Benadryl available in case of future reactions. Return here if necessary. Prescriptions: New prednisone 20 mg tablet 60 mg PO DAILY 5 Days Qty: 15 0RF No Action albuterol sulfate 90 mcg/actuation HFA aerosol inhaler 1 puff INHALATION Q6H PRN (Reason: shortness of breath or wheezing) Qty: 1 0RF Zyrtec 10 mg capsule 10 mg PO DAILY diphenhydramine HCl [Benadryl] 25 mg capsule 50 mg PO BID PRN clonidine HCl 0.1 mg tablet 0.1 mg PO BEDTIME 90 Days Qty: 90 0RF gabapentin 100 mg capsule 100 mg PO Q8H PRN (Reason: severe anxiety) Qty: 90 1RF lamotrigine 200 mg tablet 200 mg PO BEDTIME 90 Days Qty: 90 0RF (DME) Respironics DreamStation Auto CPAP Qty: 1 Dose Instruction: As directed Patient Comments: Pressure: 7-14 cmH2O DME: [facility] Instructions: As directed Referrals: Мария Carey DO [Primary Care Provider] - Stand Alone Forms: Patient Portal/API
[2022-08-09] MEDS: diphenhydrAMINE 50 MG/ML VIAL 25 MG IV (15:21)
[2022-08-09 15:26] VITALS: BP 144/79; PULSE 85; O2SAT 99
[2022-08-09 15:30] VITALS: BP 147/75; PULSE 77; RESP 13; O2SAT 99
[2022-08-09 16:00] VITALS: BP 140/70; PULSE 74; RESP 16; O2SAT 96
[2022-08-09 16:18] VITALS: BP 133/67; PULSE 73; RESP 14; O2SAT 95
[2022-08-09 16:30] VITALS: BP 128/63; PULSE 72; RESP 18; O2SAT 94
== END 2022-08-09 16:56 | disposition home or self-care (01) ==
PROVIDERS: Emergency Provider Emergency Medicine; PCP Family Medicine
DX: R22.0 Localized swelling, mass and lump, head (principal); T78.00XA Anaphylactic reaction due to unspecified food, initial encounter
CPT/HCPCS: 36415; 81003; 96374; 99284; J0171; J1200; J2930

== ENCOUNTER → 2023-04-12 12:06 | Outpatient (CLI) | payer OTHER, MEDICAID, SELFPAY ==
[2023-04-12 13:01] LABS: Add Manual Diff / Slide Review NO; Basophils Absolute Auto 0 /uL (0-100); Basophils Percent Auto 0.7 % (0-2); Eosinophils Absolute Auto 100 /uL (0-450); Eosinophils Percent Auto 1.1 % (2-4); Hematocrit 42.3 % (41-53); Hemoglobin 14.8 g/dL (13.5-17.5); Lymphocytes Absolute Auto 2200 /uL (1100-4500); Lymphocytes Percent Auto 32.1 % (25-40); Mean Corpuscular Hemoglobin 30.7 PG (26-34); Mean Corpuscular Volume 87.7 fL (80-100); Monocytes Absolute Auto 400 /uL (0-900); Neutrophils Absolute Auto 4100 /uL (1500-7000); Neutrophils Percent Auto 60.1 % (50-75); Platelet Count 190 X10^3/uL (150-400); Red Blood Cell Count 4.83 X10^6/uL (4.5-5.9); Red Cell Distribution Width 13.1 % (11.6-14.8); White Blood Cell Count 6.9 X10^3/uL (4.5-11.0)
[2023-04-12 14:20] LABS: TSH w/ Reflex to FT4 1.47 uIU/mL (0.47-4.68)
[2023-04-12 14:27] LABS: Alanine Aminotransferase 114 IU/L (<50); Albumin 4.4 g/dL (3.5-5.0); Albumin Globulin Ratio 1.6 (1.0-2.8); Alkaline Phosphatase 55 U/L (38-126); BUN Creatinine Ratio 15.8 (6-22); Bilirubin Total 1.4 mg/dL (0.2-1.3); Blood Urea Nitrogen 15 mg/dL (9-20); Calcium 9.4 mg/dL (8.4-10.2); Carbon Dioxide 26 mmol/L (22-32); Chloride 104 mmol/L (98-107); Cholesterol 179 mg/dL (140-199); Estimated Glomerular Filt Rate > 60 mL/min (>60); Globulin 2.8 g/dL (1.7-4.1); Glucose 95 mg/dL (70-100); HDL Cholesterol 43 mg/dL (40-60); HEMOLYSIS < 15 (0-50); LDL Cholesterol Calculated 115 mg/dL (<100); Potassium 4.2 mmol/L (3.4-5.1); Sodium 139 mmol/L (137-145); Total Protein 7.2 g/dL (6.3-8.2); Triglycerides 104 mg/dL (35-150)
[2023-04-13 15:18] LABS: Aspartate Aminotransferase 50 IU/L (17-59)
== END ==
PROVIDERS: PCP Student in an Organized Health Care Education/Training Program; Referring Provider Student in an Organized Health Care Education/Training Program; Visit Provider Student in an Organized Health Care Education/Training Program
DX: Z83.49 Family history of other endocrine, nutritional and metabolic diseases (principal); Z83.3 Family history of diabetes mellitus
CPT/HCPCS: 36415; 80053; 80061; 83036; 84443; 85025

== ENCOUNTER → 2024-01-17 17:27 | Outpatient (CLI) | payer OTHER, SELFPAY ==
[2024-01-17 18:32] LABS: Influenza A - CEPHEID Flu A NEGATIVE (NEGATIVE); Influenza B - CEPHEID Flu B NEGATIVE (NEGATIVE); Respiratory Syncytial Virus Negative (Negative)
[2024-01-17 18:34] LABS: COVID-19 CEPHEID 4-PLEX PCR Negative (Negative)
== END ==
PROVIDERS: PCP Student in an Organized Health Care Education/Training Program; Visit Provider Physician Assistant Medical
DX: R05.1 Acute cough (principal)
CPT/HCPCS: 0241U

== ENCOUNTER → 2024-03-08 10:33 | Outpatient (CLI) | payer OTHER, MEDICAID, SELFPAY ==
--- NOTE | 2024-03-08 10:54 | DI.RAD.S_ITS ---
PROCEDURE: XR CHEST 2V INDICATIONS: Cough TECHNIQUE: 2 views of the chest were acquired. COMPARISON: None. FINDINGS: Surgical changes and devices: None. Lungs and pleura: Lungs are clear. No pleural effusions or pneumothorax. Mediastinum: Mediastinal contours are normal. Heart size is normal. Bones and chest wall: No suspicious bony abnormalities. Soft tissues appear unremarkable. IMPRESSION: No acute cardiopulmonary abnormalities or focal consolidation. Dictated by: Davis Morris M.D. on 03/08/2024 at 16:32 Approved by: Davis Morris M.D. on 03/08/2024 at 16:33
== END ==
PROVIDERS: PCP Student in an Organized Health Care Education/Training Program; Referring Provider Nurse Practitioner Family; Visit Provider Nurse Practitioner Family
DX: J02.9 Acute pharyngitis, unspecified (principal); R05.9 Cough, unspecified
CPT/HCPCS: 71046; 87070

== ENCOUNTER → 2024-06-25 15:38 | Outpatient (CLI) | payer OTHER, SELFPAY ==
[2024-06-25 18:18] LABS: Influenza A - CEPHEID Flu A POSITIVE (NEGATIVE); Influenza B - CEPHEID Flu B NEGATIVE (NEGATIVE); Respiratory Syncytial Virus Negative (Negative)
[2024-06-25 18:28] LABS: COVID-19 CEPHEID 4-PLEX PCR Negative (Negative)
== END ==
PROVIDERS: PCP Student in an Organized Health Care Education/Training Program; Visit Provider Nurse Practitioner Family
DX: J02.9 Acute pharyngitis, unspecified (principal); R05.1 Acute cough
CPT/HCPCS: 0241U; 87070

== ENCOUNTER → 2024-06-25 15:54 | Outpatient (CLI) | payer OTHER, SELFPAY ==
--- NOTE | 2024-06-25 15:55 | DI.RAD.S_ITS ---
PROCEDURE: XR CHEST 2V INDICATIONS: Cough TECHNIQUE: 2 views of the chest were acquired. COMPARISON: [facility], CR, XR CHEST 2V, 03/08/2024, 11:34. FINDINGS: Heart, mediastinum and pulmonary vascular: Heart is normal in size and configuration. Mediastinum is unremarkable. Pulmonary vascular is normal. Lungs: Clear Pleural spaces: Normal-no effusions or pneumothorax. Bones and soft tissues: Mild degenerative disc disease seen throughout the thoracic spine. IMPRESSION: Normal chest. Dictated by: Alex Harper M.D. on 06/27/2024 at 12:03 Approved by: Alex Harper M.D. on 06/27/2024 at 12:03
== END ==
PROVIDERS: PCP Student in an Organized Health Care Education/Training Program; Referring Provider Nurse Practitioner Family; Visit Provider Nurse Practitioner Family
DX: J02.9 Acute pharyngitis, unspecified (principal); R05.1 Acute cough; M51.34 Other intervertebral disc degeneration, thoracic region
CPT/HCPCS: 0241U; 71046; 87070

== ENCOUNTER → 2024-09-11 16:06 | Outpatient (CLI) | payer OTHER, SELFPAY ==
--- NOTE | 2024-09-11 16:07 | DI.RAD.S_ITS ---
PROCEDURE: XR CHEST 2V INDICATIONS: COUGH TECHNIQUE: 2 views of the chest were acquired. COMPARISON: [facility], CR, XR CHEST 2V, 06/25/2024, 14:58. [facility], CR, XR CHEST 2V, 03/08/2024, 11:34. FINDINGS: Surgical changes and devices: None. Lungs and pleura: Ill-defined increased density in the left perihilar region, probably extending anteriorly over the upper lung on the lateral view. Mediastinum: Mediastinal contours are normal. Heart size is normal. Bones and chest wall: No suspicious bony abnormalities. Soft tissues appear unremarkable. IMPRESSION: Probable developing left perihilar/upper lobe pneumonia, short-term follow-up studies may be obtained. Dictated by: Ronaldo Campbell M.D. on 09/11/2024 at 19:29 Approved by: Ronaldo Campbell M.D. on 09/11/2024 at 19:30
== END ==
PROVIDERS: PCP Student in an Organized Health Care Education/Training Program; Referring Provider Nurse Practitioner Family; Visit Provider Nurse Practitioner Family
DX: R05.9 Cough, unspecified (principal)
CPT/HCPCS: 71046